=== PATIENT | female | born 1950 | race Hispanic/Latino ===

== ENCOUNTER 2018-03-31 11:12 | Emergency (ER) | payer OTHER ==
[2018-03-31] MEDS ORDERED: IPRATROPIUM BROM 0.5MG/2.5ML ONE (12:35)
[2018-03-31] MEDS ORDERED: ALBUTEROL 2.5 MG/3 ML NEB SOL ONE (12:35)
--- NOTE | 2018-03-31 14:24 | ER ---
Nurse's Notes [facility] Name: Wandy Marks Age: 67 yrs Sex: Female : 1950 Arrival Date: 03/31/2018 Time: 11:15 Bed 12 Private MD: Diagnosis: Bronchitis, not specified as acute or chronic Presentation: 03/31 11:25 Presenting complaint: Patient states: Nasal congestion, cough for 15 days. Seen by PCP aj on Tuesday and DX with seasonal allergies. Patient states, "the medicine isn't working." Patient did not call PCP. Transition of care: patient was not received from another setting of care. Onset of symptoms was March 15, 2018. Initial Sepsis Screen: Does the patient meet any 2 criteria? No. Patient's initial sepsis screen is negative. Does the patient have a suspected source of infection? No. Patient's initial sepsis screen is negative. Care prior to arrival: None. 11:25 Method Of Arrival: Ambulatory aj 11:25 Acuity: PENNY 4 aj Triage Assessment: 11:27 General: Appears in no apparent distress. comfortable, Behavior is calm, cooperative, aj appropriate for age. Pain: Denies pain. EENT: Reports nasal congestion nasal discharge. Neuro: Level of Consciousness is awake, alert, obeys commands, Oriented to person, place, time, situation, Appropriate for age. Respiratory: Reports cough that is Airway is patent Respiratory effort is even, unlabored, Respiratory pattern is regular, symmetrical. Derm: Skin is intact, is healthy with good turgor, Skin is pink, warm \\T\\ dry. normal. Historical: - Allergies: 11:27 PENICILLINS; aj - PMHx: 11:27 Hypertension; Diabetes - NIDDM; aj - PSHx: 11:27 Hysterectomy; aj - Immunization history:: Adult Immunizations up to date. - Social history:: Smoking status: Patient/guardian denies using tobacco. Screenin:40 Fall Risk None identified. iw 13:05 Abuse screen: Denies threats or abuse. Denies injuries from another. Nutritional iw screening: No deficits noted. Tuberculosis screening: No symptoms or risk factors identified. Assessment: 12:40 General: Appears in no apparent distress. comfortable, Behavior is calm, cooperative. iw Neuro: Level of Consciousness is awake, alert, obeys commands. Cardiovascular: Patient's skin is warm and dry. Respiratory: Reports cough that is productive. Vital Signs: 11:27 BP 142 / 92; Pulse 90; Resp 20; Temp 97.6; Pulse Ox 98% on R/A; Weight 79.83 kg; Height aj 5 ft. 4 in. (162.56 cm); 11:27 Body Mass Index 30.21 (79.83 kg, 162.56 cm) aj ED Course: 11:15 Patient arrived in ED. mr 11:27 Triage completed. aj 11:27 Arm band placed on left wrist. Patient placed in waiting room, Patient notified of wait aj time. 12:17 Rose Rivera FNP-C is PHCP. kb 12:17 Jerad Alvarado MD is Attending Physician. kb 12:30 Lona Drake, RN is Primary Nurse. iw 12:40 Patient has correct armband on for positive identification. iw 12:45 Radiology exam delayed due to patient receiving breathing treatment at this time. jr1 patient is not appropriately dressed for the exam at this time. 14:24 Chest Pa And Lat (2 Views) XRAY In Process Unspecified. EDMS 14:50 No provider procedures requiring assistance completed. Patient did not have IV access iw during this emergency room visit. Administered Medications: 12:35 Drug: DuoNeb (3:1) (2.5 mg - 0.5 mg) 3 ml Route: Nebulizer; iw 14:45 Drug: Zithromax 500 mg Route: PO; iw Outcome: 14:23 Discharge ordered by MD. kb 14:54 Discharged to home ambulatory, with family. iw 14:54 Condition: good 14:54 Discharge instructions given to patient, family, Instructed on discharge instructions, follow up and referral plans. medication usage, Demonstrated understanding of instructions, follow-up care, medications, Prescriptions given X 2. 14:55 Patient left the ED. iw Signatures: Dispatcher [employer] EDMS Rose Rivera FNP-C FNP-Kristy Foster, RN Suri Bhagat Carissa Sterling jr1 Lona Drake, RN RN iw
--- NOTE | 2018-03-31 14:24 | EDPHYS ---
Physician Documentation [facility] Name: Wandy Marks Age: 67 yrs Sex: Female : 1950 Arrival Date: 03/31/2018 Time: 11:15 Bed 12 Private MD: ED Physician Jerad Alvarado HPI: 03/31 12:41 This 67 yrs old Female presents to ER via Ambulatory with complaints of Cough, kb Congestion. 12:41 The patient or guardian reports cough, that is intermittent, described as moderate, kb with no sputum. Onset: The symptoms/episode began/occurred 15 day(s) ago. Severity of symptoms: At their worst the symptoms were mild, moderate, in the emergency department the symptoms are unchanged. Modifying factors: The symptoms are alleviated by nothing, the symptoms are aggravated by nothing. Associated signs and symptoms: Pertinent positives: rhinorrhea, Pertinent negatives: chest pain, diarrhea, ear ache, fever, nausea, sore throat, vomiting. The patient has not experienced similar symptoms in the past. The patient has not recently seen a physician. Pt c/o cough and congestion for 15 days. Has been taking flonase, prednisone, and claritin without relief. symptoms progressively getting worse. Historical: - Allergies: 11:27 PENICILLINS; aj - PMHx: 11:27 Hypertension; Diabetes - NIDDM; aj - PSHx: 11:27 Hysterectomy; aj - Immunization history:: Adult Immunizations up to date. - Social history:: Smoking status: Patient/guardian denies using tobacco. ROS: 12:39 Constitutional: Negative for fever, chills, and weight loss, Neck: Negative for injury, kb pain, and swelling, Cardiovascular: Negative for chest pain, palpitations, and edema, Abdomen/GI: Negative for abdominal pain, nausea, vomiting, diarrhea, and constipation, Back: Negative for injury and pain, : Negative for injury, bleeding, discharge, and swelling, MS/Extremity: Negative for injury and deformity, Skin: Negative for injury, rash, and discoloration, Neuro: Negative for headache, weakness, numbness, tingling, and seizure. 12:39 ENT: Positive for rhinorrhea, sinus congestion. 12:39 Respiratory: Positive for cough, Negative for dyspnea on exertion, hemoptysis, orthopnea, pleurisy, shortness of breath, sputum production, wheezing. Exam: 12:39 Constitutional: This is a well developed, well nourished patient who is awake, alert, kb and in no acute distress. Head/Face: Normocephalic, atraumatic. Neck: Trachea midline, no thyromegaly or masses palpated, and no cervical lymphadenopathy. Supple, full range of motion without nuchal rigidity, or vertebral point tenderness. No Meningismus. Chest/axilla: Normal chest wall appearance and motion. Nontender with no deformity. No lesions are appreciated. Cardiovascular: Regular rate and rhythm with a normal S1 and S2. No gallops, murmurs, or rubs. Normal PMI, no JVD. No pulse deficits. Abdomen/GI: Soft, non-tender, with normal bowel sounds. No distension or tympany. No guarding or rebound. No evidence of tenderness throughout. Back: No spinal tenderness. No costovertebral tenderness. Full range of motion. Skin: Warm, dry with normal turgor. Normal color with no rashes, no lesions, and no evidence of cellulitis. MS/ Extremity: Pulses equal, no cyanosis. Neurovascular intact. Full, normal range of motion. Neuro: Awake and alert, GCS 15, oriented to person, place, time, and situation. Cranial nerves II-XII grossly intact. Motor strength 5/5 in all extremities. Sensory grossly intact. Cerebellar exam normal. Normal gait. 12:39 Respiratory: the patient does not display signs of respiratory distress, Respirations: normal, Breath sounds: wheezing: expiratory that is mild. Vital Signs: 11:27 BP 142 / 92; Pulse 90; Resp 20; Temp 97.6; Pulse Ox 98% on R/A; Weight 79.83 kg; Height aj 5 ft. 4 in. (162.56 cm); 11:27 Body Mass Index 30.21 (79.83 kg, 162.56 cm) aj MDM: 12:17 Patient medically screened. kb 12:39 Data reviewed: vital signs, nurses notes. Data interpreted: Pulse oximetry: on room air kb is 98 %. Interpretation: normal. Counseling: I had a detailed discussion with the patient and/or guardian regarding: the historical points, exam findings, and any diagnostic results supporting the discharge/admit diagnosis, radiology results, the need for outpatient follow up, a family practitioner, to return to the emergency department if symptoms worsen or persist or if there are any questions or concerns that arise at home. 03/31 12:28 Order name: Chest Pa And Lat (2 Views) XRAY kb Administered Medications: 12:35 Drug: DuoNeb (3:1) (2.5 mg - 0.5 mg) 3 ml Route: Nebulizer; iw 14:45 Drug: Zithromax 500 mg Route: PO; iw Disposition: 03/31/18 14:23 Discharged to Home. Impression: Bronchitis, not specified as acute or chronic. - Condition is Stable. - Discharge Instructions: Acute Bronchitis, [id number]. - Prescriptions for Zithromax Z- Maurisio 250 mg Oral Tablet - take 1 tablet by ORAL route as directed for 5 days Day 1 - take two (2) tablets one time. Day 2, 3, 4 , 5 take one (1) tablet once daily.; 6 tablet. Albuterol Sulfate 90 mcg/actuation - inhale 1-2 puff by INHALATION route every 4-6 hours; 1 Inhaler. - Medication Reconciliation Form, Thank You Letter, Antibiotic Education, Prescription Opioid Use form. - Follow up: Emergency Department; When: As needed; Reason: Worsening of condition. Follow up: Private Physician; When: 2 - 3 days; Reason: Recheck today's complaints, Continuance of care, Re-evaluation by your physician. Addendum: 04/03/2018 08:47 Co-signature as Attending Physician, Jerad Alvarado MD I agree with the assessment and c mckeon plan of care. Signatures: Dispatcher [employer] Rose Yu, EDUARDA-C WEB SITE DESIGNER-Kristy Foster RN RN aj Anderson, Corey, MD MD cha Williams, Irene RN RN iw Corrections: (The following items were deleted from the chart) 03/31 14:55 14:23 03/31/2018 14:23 Discharged to Home. Impression: Bronchitis, not specified as iw acute or chronic. Condition is Stable. Forms are Medication Reconciliation Form, Thank You Letter, Antibiotic Education, Prescription Opioid Use. Follow up: Emergency Department; When: As needed; Reason: Worsening of condition. Follow up: Private Physician; When: 2 - 3 days; Reason: Recheck today's complaints, Continuance of care, Re-evaluation by your physician. kb
[2018-03-31] MEDS ORDERED: AZITHROMYCIN 250 MG TAB ONE (14:48)
--- NOTE | 2018-03-31 15:49 | RAD REPORT ---
EXAM DESCRIPTION: Jordan Espinosa And Flaquita (2 Views)03/31/2018 2:23 pm CLINICAL HISTORY: Cough COMPARISON: None FINDINGS: The lungs appear clear of acute infiltrate. The heart is normal size. The aorta is tortuo us/ectatic IMPRESSION: No acute abnormalities displayed
== END 2018-03-31 14:55 | disposition home or self-care (01) ==
LOC: ER 11:12
DX: J40 Bronchitis, not specified as acute or chronic (principal); I10 Essential (primary) hypertension; Z88.0 Allergy status to penicillin
CPT/HCPCS: 71046; 94640; 99284

== ENCOUNTER 2019-02-23 06:42 | Inpatient (IN) | payer OTHER ==
[2019-02-23 07:34] LABS: Absolute Lymphocytes (CBC) 1.9 K/uL (0.7-4.9); Absolute Monocytes 1.2 K/uL (0.1-1.3); Absolute Neutrophil 8.5 K/uL (1.8-8.0); Basophils % 0.5 % (0-1.3); Eosinophils % 0.7 % (0-4.4); Hematocrit 38.6 % (36.0-45.0); Lymphocytes % 16.3 % (15.3-44.8); MPV 10.5 fL (7.6-11.3); Monocytes % 10.5 % (3.3-12.3); RBC Red Blood Cell Count 4.22 M/uL (3.86-4.86)
[2019-02-23] MEDS ORDERED: MEPERIDINE HCL 25 MG/0.5 ML ONE (07:41)
[2019-02-23] MEDS ORDERED: ONDANSETRON 4 MG/2 ML VIAL ONE (07:41)
[2019-02-23 07:55] LABS: ALT/SGPT 37 U/L (12-78); AST/SGOT 18 U/L (15-37); Albumin 3.4 g/dL (3.4-5.0); Alkaline Phosphatase 96 U/L (45-117); BUN Blood Urea Nitrogen 15 mg/dL (7-18); Bicarbonate 25 mmol/L (21-32); Bilirubin Direct 0.2 mg/dL (0-0.2); Bilirubin Total 0.5 mg/dL (0.2-1.0); Glucose Level 119 mg/dL (74-106); Lipase 1368 U/L (73-393); Potassium 3.6 mmol/L (3.5-5.1); Protein, Total 7.4 g/dL (6.4-8.2); Sodium Level 140 mmol/L (136-145)
--- NOTE | 2019-02-23 09:12 | RAD REPORT ---
EXAM DESCRIPTION: CT - Abdomen Pelvis W Contrast - 02/23/2019 8:42 am CLINICAL HISTORY: Abdominal pain with nausea. COMPARISON: none. TECHNIQUE: Computed axial tomography of the abdomen pelvis was obtained. 100 cc Isovue-300 was admin istered intravenously. Oral contrast was not requested which limits evaluation of bowel. All CT scans are performed using dose optimization technique as appropriate and may include automated exposure control or mA/KV adjustment according to patient size. FINDINGS: Mild fatty liver. Portion of wall of the gallbladder is calcified. 1Spleen, pancreas, adrenal and kidneys appear unremarkable. There is no evidence of diverticulitis. The appendix is normal a hysterectomy has been performed Duodenal diverticulum. Tiny umbilical hernia Mild stranding is present adjacent to the third portion of the duodenum. IMPRESSION: Mild stranding adjacent to the third portion of the duodenum may indicate inflammation o r infection.
--- NOTE | 2019-02-23 10:00 | RAD REPORT ---
EXAM DESCRIPTION: US - Abdomen Exam Limited - 02/23/2019 7:41 am CLINICAL HISTORY: Abdominal pain. COMPARISON: December 2018 FINDINGS: Multiple small gallstones. Gallbladder wall is not thickened. The biliary tree is normal caliber. IMPRESSION: Cholelithiasis
--- NOTE | 2019-02-23 10:09 | EDPHYS ---
Physician Documentation [facility] Name: Wandy Marks Age: 68 yrs Sex: Female : 1950 Arrival Date: 02/23/2019 Time: 06:43 Bed 7 Private MD: Ema Escoto C ED Physician Carolyn Wolfe HPI: 02/23 07:24 This 68 yrs old Female presents to ER via Wheelchair with complaints of jr8 Epigastric Pain, Nausea/Vomiting, Back Pain. 07:24 The patient presents with abdominal pain in the epigastric area, in the upper abdomen. jr8 Onset: The symptoms/episode began/occurred gradually, 1 week(s) ago. The symptoms radiate to back. Associated signs and symptoms: Pertinent positives: nausea, vomiting, and diarrhea. The symptoms are described as stabbing. Modifying factors: The symptoms are alleviated by nothing, the symptoms are aggravated by food. Severity of pain: At its worst the pain was moderate in the emergency department the pain is unchanged. The patient has not experienced similar symptoms in the past. The patient has been recently seen by a physician:. Saw physician in [place] and gave her combination shot of Toradol and Scopolamine. Helped temporarily but now worse . Historical: - Allergies: 07:01 PENICILLINS; jd3 - Home Meds: 07:01 carvedilol 12.5 mg oral tab [Active]; esomeprazole magnesium 40 mg oral cpDR [Active]; jd3 Jentadueto 2.5-500 mg oral tab [Active]; losartan 100 mg oral tab [Active]; - PMHx: 07:01 Hypertension; Diabetes - NIDDM; High Cholesterol; jd3 - PSHx: 07:01 Hysterectomy; Tonsillectomy; jd3 - Immunization history:: Adult Immunizations up to date. - Social history:: Smoking status: Patient/guardian denies using tobacco. - Ebola Screening: : Patient negative for fever greater than or equal to 101.5 degrees Fahrenheit, and additional compatible Ebola Virus Disease symptoms. ROS: 07:24 Eyes: Negative for injury, pain, redness, and discharge, ENT: Negative for injury, jr8 pain, and discharge, Neck: Negative for injury, pain, and swelling, Cardiovascular: Negative for chest pain, palpitations, and edema, Respiratory: Negative for shortness of breath, cough, wheezing, and pleuritic chest pain, Back: Negative for injury and pain, MS/Extremity: Negative for injury and deformity, Skin: Negative for injury, rash, and discoloration, Neuro: Negative for headache, weakness, numbness, tingling, and seizure. 07:24 Abdomen/GI: Positive for abdominal pain, nausea, vomiting, and diarrhea, Negative for abdominal cramps, abdominal distension, anorexia, dysphagia, hematemesis, black/tarry stool, rectal pain, rectal bleeding, bowel incontinence, flatulence. Exam: 07:24 Eyes: Pupils equal round and reactive to light, extra-ocular motions intact. Lids and jr8 lashes normal. Conjunctiva and sclera are non-icteric and not injected. Cornea within normal limits. Periorbital areas with no swelling, redness, or edema. ENT: Nares patent. No nasal discharge, no septal abnormalities noted. Tympanic membranes are normal and external auditory canals are clear. Oropharynx with no redness, swelling, or masses, exudates, or evidence of obstruction, uvula midline. Mucous membranes moist. Neck: Trachea midline, no thyromegaly or masses palpated, and no cervical lymphadenopathy. Supple, full range of motion without nuchal rigidity, or vertebral point tenderness. No Meningismus. Cardiovascular: Regular rate and rhythm with a normal S1 and S2. No gallops, murmurs, or rubs. Normal PMI, no JVD. No pulse deficits. Respiratory: Lungs have equal breath sounds bilaterally, clear to auscultation and percussion. No rales, rhonchi or wheezes noted. No increased work of breathing, no retractions or nasal flaring. Back: No spinal tenderness. No costovertebral tenderness. Full range of motion. Skin: Warm, dry with normal turgor. Normal color with no rashes, no lesions, and no evidence of cellulitis. MS/ Extremity: Pulses equal, no cyanosis. Neurovascular intact. Full, normal range of motion. Neuro: Awake and alert, GCS 15, oriented to person, place, time, and situation. Cranial nerves II-XII grossly intact. Motor strength 5/5 in all extremities. Sensory grossly intact. Cerebellar exam normal. Normal gait. 07:24 Abdomen/GI: Inspection: abdomen appears normal, Bowel sounds: active, all quadrants, Palpation: soft, in all quadrants, moderate abdominal tenderness, in the epigastric area and right upper quadrant, mass, is not appreciated, rebound tenderness, is not appreciated, voluntary guarding, is not appreciated, involuntary guarding, is not appreciated, no appreciated organomegaly, Indicators: McBurney's point is not tender, Thomas's sign is positive, Rovsing's sign is negative, Liver: tenderness, is not appreciated. Vital Signs: 07:01 BP 148 / 70; Pulse 75; Resp 18 S; Temp 99.0(O); Pulse Ox 97% on R/A; Weight 76.66 kg jd3 (R); Height 5 ft. 2 in. (157.48 cm) (R); Pain 7/10; 07:37 BP 146 / 79; Pulse 64; Resp 16 S; Pulse Ox 92% on R/A; jl7 09:09 BP 127 / 59; Pulse 60; Resp 19 S; Pulse Ox 95% on R/A; jl7 10:12 BP 144 / 73; Pulse 62; Resp 16 S; Pulse Ox 99% on R/A; jl7 11:00 BP 139 / 69; Pulse 60; Resp 16 S; Pulse Ox 98% on R/A; jl7 12:00 BP 120 / 76; Pulse 61; Resp 14 S; Pulse Ox 98% on R/A; jl7 14:00 BP 127 / 69; Pulse 61; Resp 16 S; Pulse Ox 99% on R/A; jl7 07:01 Body Mass Index 30.91 (76.66 kg, 157.48 cm) jd3 MDM: 06:45 Patient medically screened. jr8 10:07 Data reviewed: vital signs, nurses notes, lab test result(s), radiologic studies, CT jr8 scan, ultrasound. Data interpreted: Pulse oximetry: on room air is 95 %. Interpretation: normal. Counseling: I had a detailed discussion with the patient and/or guardian regarding: the historical points, exam findings, and any diagnostic results supporting the discharge/admit diagnosis, lab results, radiology results, the need for further work-up and treatment in the hospital. Physician consultation: Zulema Null MD was called at 10:08, was contacted at 10:08, regarding admission, to the medical/surgical unit. consult, patient's condition, and will see patient. 02/23 07:15 Order name: Basic Metabolic Panel; Complete Time: 08:12 02/23 07:15 Order name: CBC with Diff; Complete Time: 07:53 02/23 07:15 Order name: Creatinine for Radiology; Complete Time: 07:53 02/23 07:15 Order name: Hepatic Function; Complete Time: 08:12 02/23 07:15 Order name: Lipase; Complete Time: 08:12 02/23 07:21 Order name: Urine Dipstick--Ancillary (enter results); Complete Time: 11:34 02/23 07:15 Order name: IV Saline Lock; Complete Time: 07:27 02/23 07:15 Order name: Labs collected and sent; Complete Time: 07:28 02/23 07:15 Order name: US Abdomen Limited; Complete Time: 10:02 02/23 08:13 Order name: CT Abd/Pelvis - W/Contrast; Complete Time: 09:21 [facility] 02/23 07:15 Order name: Urine Dipstick-Ancillary (obtain specimen); Complete Time: 07:27 Administered Medications: 07:31 Drug: Zofran 4 mg Route: IVP; Site: left antecubital; jl7 08:15 Follow up: Response: No adverse reaction jl7 07:33 Drug: Demerol 25 mg Route: IVP; Site: left antecubital; jl7 08:15 Follow up: Response: No adverse reaction; Pain is decreased jl7 10:05 Drug: Rocephin 1 grams Route: IV; Rate: calculated rate; Site: left antecubital; jl7 10:07 Follow up: Response: No adverse reaction; IV Status: Completed infusion jl7 10:07 Drug: Flagyl 500 mg Volume: 100 ml; Route: IVPB; Rate: 200 ml/hr; Infused Over: 30 jl7 mins; Site: left antecubital; 10:37 Follow up: Response: No adverse reaction jl7 10:37 Follow up: IV Status: Completed infusion jl7 Disposition: 02/23/19 10:08 Hospitalization ordered by Zulema Null for Inpatient Admission. Preliminary diagnosis are Duodenitis, Cholelithiasis. - Bed requested for Telemetry/MedSurg (Inpatient). - Status is Inpatient Admission. jl7 - Condition is Stable. - Problem is new. - Symptoms have improved. UTI on Admission? No Addendum: 02/27/2019 11:46 Co-signature as Attending Physician, Carolyn Wolfe MD. m a2 Signatures: Dispatcher [employer] EDMS Tomás Mccallum PA PA jr8 Zach Dodd, MODE RN jl7 Joselyn Christianson, RN RN df Ben Heller RN RN jd3 Carolyn Wolfe MD MD ma2 Corrections: (The following items were deleted from the chart) 02/23 13:51 10:08 Hospitalization Ordered by Zulema Null MD for Inpatient Admission. Preliminary df diagnosis is Duodenitis; Cholelithiasis. Bed requested for Telemetry/MedSurg (Inpatient). Status is Inpatient Admission. Condition is Stable. Problem is new. Symptoms have improved. UTI on Admission? No. jr8 14:29 13:51 02/23/2019 10:08 Hospitalization Ordered by Zulema Null MD for Inpatient jl7 Admission. Preliminary diagnosis is Duodenitis; Cholelithiasis. Bed requested for Telemetry/MedSurg (Inpatient). Status is Inpatient Admission. Condition is Stable. Problem is new. Symptoms have improved. UTI on Admission? No. df
--- NOTE | 2019-02-23 10:09 | ER ---
Nurse's Notes [facility] Name: Wandy Marks Age: 68 yrs Sex: Female : 1950 Arrival Date: 02/23/2019 Time: 06:43 Bed 7 Private MD: Ema Escoto C Diagnosis: Duodenitis;Cholelithiasis Presentation: 02/23 06:55 Presenting complaint: Patient states: "I am having abdominal pain and feeling bloated, jd3 and throwing up, and diarrhea. my pee has also been very dark.". Transition of care: patient was not received from another setting of care. Onset of symptoms was February 23, 2019. Risk Assessment: Do you want to hurt yourself or someone else? Patient reports no desire to harm self or others. Initial Sepsis Screen: Does the patient meet any 2 criteria? No. Patient's initial sepsis screen is negative. Does the patient have a suspected source of infection? No. Patient's initial sepsis screen is negative. Care prior to arrival: None. 06:55 Method Of Arrival: Wheelchair jd3 06:55 Acuity: PENNY 3 jd3 Historical: - Allergies: 07:01 PENICILLINS; jd3 - Home Meds: 07:01 carvedilol 12.5 mg oral tab [Active]; esomeprazole magnesium 40 mg oral cpDR [Active]; jd3 Jentadueto 2.5-500 mg oral tab [Active]; losartan 100 mg oral tab [Active]; - PMHx: 07:01 Hypertension; Diabetes - NIDDM; High Cholesterol; jd3 - PSHx: 07:01 Hysterectomy; Tonsillectomy; jd3 - Immunization history:: Adult Immunizations up to date. - Social history:: Smoking status: Patient/guardian denies using tobacco. - Ebola Screening: : Patient negative for fever greater than or equal to 101.5 degrees Fahrenheit, and additional compatible Ebola Virus Disease symptoms. Screenin:37 Abuse screen: Denies threats or abuse. Denies injuries from another. Nutritional jl7 screening: No deficits noted. Tuberculosis screening: No symptoms or risk factors identified. Fall Risk IV access (20 points). Total Ashton Fall Scale indicates No Risk (0-24 pts). Assessment: 07:15 General: Appears in no apparent distress. uncomfortable, Behavior is calm, cooperative, jl7 appropriate for age. Pain: Complains of pain in epigastric area Pain radiates to right upper quadrant Pain currently is 7 out of 10 on a pain scale. Is intermittent. Neuro: Level of Consciousness is awake, alert, obeys commands, Oriented to person, place, time, situation. Cardiovascular: Patient's skin is warm and dry. Respiratory: Airway is patent Respiratory effort is even, unlabored, Respiratory pattern is regular, symmetrical. GI: Abdomen is round non-distended, Bowel sounds present X 4 quads. Abd is soft X 4 quads Abdomen is tender to palpation in right upper quadrant Reports nausea, Patient currently denies constipation, diarrhea, vomiting. : Urine is Clear, light yellow urine noted Reports "Dark urine.". EENT: No signs and/or symptoms were reported regarding the EENT system. Derm: Skin is pink, warm \\T\\ dry. Musculoskeletal: No signs and/or symptoms reported regarding the musculoskeletal system. 08:15 Reassessment: Patient appears in no apparent distress at this time. Patient and/or jl7 family updated on plan of care and expected duration. Pain level reassessed. Patient is alert, oriented x 3, equal unlabored respirations, skin warm/dry/pink. Pain decreased to a 5/10 at this time. 09:11 Reassessment: Patient appears in no apparent distress at this time. No changes from jl7 previously documented assessment. Patient and/or family updated on plan of care and expected duration. Pain level reassessed. Patient is alert, oriented x 3, equal unlabored respirations, skin warm/dry/pink. 10:00 Reassessment: Patient appears in no apparent distress at this time. Patient and/or jl7 family updated on plan of care and expected duration. Pain level reassessed. Patient is alert, oriented x 3, equal unlabored respirations, skin warm/dry/pink. 11:00 Reassessment: Patient appears in no apparent distress at this time. No changes from jl7 previously documented assessment. Patient and/or family updated on plan of care and expected duration. Pain level reassessed. Patient is alert, oriented x 3, equal unlabored respirations, skin warm/dry/pink. 12:00 Reassessment: Patient appears in no apparent distress at this time. Patient and/or jl7 family updated on plan of care and expected duration. Pain level reassessed. Patient is alert, oriented x 3, equal unlabored respirations, skin warm/dry/pink. 13:00 Reassessment: Patient appears in no apparent distress at this time. Patient and/or jl7 family updated on plan of care and expected duration. Pain level reassessed. Patient is alert, oriented x 3, equal unlabored respirations, skin warm/dry/pink. 14:00 Reassessment: Patient appears in no apparent distress at this time. No changes from jl7 previously documented assessment. Patient and/or family updated on plan of care and expected duration. Pain level reassessed. Patient is alert, oriented x 3, equal unlabored respirations, skin warm/dry/pink. Vital Signs: 07:01 BP 148 / 70; Pulse 75; Resp 18 S; Temp 99.0(O); Pulse Ox 97% on R/A; Weight 76.66 kg jd3 (R); Height 5 ft. 2 in. (157.48 cm) (R); Pain 7/10; 07:37 BP 146 / 79; Pulse 64; Resp 16 S; Pulse Ox 92% on R/A; jl7 09:09 BP 127 / 59; Pulse 60; Resp 19 S; Pulse Ox 95% on R/A; jl7 10:12 BP 144 / 73; Pulse 62; Resp 16 S; Pulse Ox 99% on R/A; jl7 11:00 BP 139 / 69; Pulse 60; Resp 16 S; Pulse Ox 98% on R/A; jl7 12:00 BP 120 / 76; Pulse 61; Resp 14 S; Pulse Ox 98% on R/A; jl7 14:00 BP 127 / 69; Pulse 61; Resp 16 S; Pulse Ox 99% on R/A; jl7 07:01 Body Mass Index 30.91 (76.66 kg, 157.48 cm) jd3 ED Course: 06:43 Patient arrived in ED. am2 06:44 Ema Escoto FNP is Private Physician. am2 06:45 [facility] jr8 06:45 Carolyn Wolfe MD is Attending Physician. jr8 06:58 Triage completed. jd3 07:03 Arm band placed on. jd3 07:06 Zach Dodd RN is Primary Nurse. jl7 07:37 Patient has correct armband on for positive identification. Placed in gown. Bed in low jl7 position. Call light in reach. Side rails up X 1. monitor and storage bin tender on. Pulse ox on. NIBP on. 07:37 Initial lab(s) drawn, by me, sent to lab. Urine collected: clean catch specimen, clear. jl7 Inserted saline lock: 22 gauge in left antecubital area, using aseptic technique. Blood collected. 07:42 US Abdomen Limited In Process Unspecified. EDMS 08:35 CT completed. Patient tolerated procedure well. Patient moved to CT via stretcher. Patient moved back from CT. 08:36 CT Abd/Pelvis - W/Contrast In Process Unspecified. EDMS 10:08 Zulema Null MD is Hospitalizing Provider. jr8 14:27 No provider procedures requiring assistance completed. Patient admitted, IV remains in jl7 place. intact, No redness/swelling at site. Administered Medications: 07:31 Drug: Zofran 4 mg Route: IVP; Site: left antecubital; jl7 08:15 Follow up: Response: No adverse reaction jl7 07:33 Drug: Demerol 25 mg Route: IVP; Site: left antecubital; jl7 08:15 Follow up: Response: No adverse reaction; Pain is decreased jl7 10:05 Drug: Rocephin 1 grams Route: IV; Rate: calculated rate; Site: left antecubital; jl7 10:07 Follow up: Response: No adverse reaction; IV Status: Completed infusion jl7 10:07 Drug: Flagyl 500 mg Volume: 100 ml; Route: IVPB; Rate: 200 ml/hr; Infused Over: 30 jl7 mins; Site: left antecubital; 10:37 Follow up: Response: No adverse reaction jl7 10:37 Follow up: IV Status: Completed infusion jl7 Outcome: 10:08 Decision to Hospitalize by Provider. jr8 14:27 Admitted to Tele accompanied by tech, family with patient, via stretcher, room 430, jl7 with chart, Report called to MODE Laguerre 14:27 Condition: stable 14:27 Discharge instructions given to patient, family, Instructed on the need for admit, Demonstrated understanding of instructions. 14:29 Patient left the ED. jl7 Signatures: Dispatcher [employer] Kiarra Hickman Josh, PA PA jr8 Zach oDdd RN RN jl7 Kristy Alberto Jonathon, RN RN jd3 Corrections: (The following items were deleted from the chart) 07:39 07:37 Warm blanket given. yumiko jl7
[2019-02-23] MEDS ORDERED: METRONIDAZOLE 500mg IVPB 500 MG/100 ML BAG IV ONE (10:14)
[2019-02-23] MEDS ORDERED: CEFTRIAXONE/SWI 1gm 1 GM/10 ML SYR ONE (10:14)
[2019-02-23 11:18] LABS: Urine Blood TRACE (NEG); Urine Glucose NEGATIVE (NEG); Urine Protein NEGATIVE (NEG); Urine Specific Gravity 1.015 (1.005-1.030)
[2019-02-23] MEDS ORDERED: ONDANSETRON 4 MG/2 ML VIAL IV PRN (14:47)
[2019-02-23] MEDS ORDERED: ACETAMINOPHEN 650MG/RECT SUPP PR PRN (14:47)
[2019-02-23] MEDS ORDERED: CARVEDILOL 12.5 MG TAB PO PRN (15:17)
[2019-02-23 15:40] VITALS: BMI 30.9
--- NOTE | 2019-02-23 16:07 | RAD REPORT ---
EXAM DESCRIPTION: MRI - Cholangiogram - 02/23/2019 3:18 pm CLINICAL HISTORY: Abdominal pain, acute cholecystitis COMPARISON: CT abdomen February 23, ultrasound February 23 TECHNIQUE: Axial and coronal heavily T2 weighted sequences were obtained. Coronal T2 HASTE fat satur ation static and coronal multiplane reconstruction imaging generated and reviewed. Horizontal and massimo tical axis rotational views obtained using maximum intensity projection (MIP) protocol. FINDINGS: Exam has motion degradation limitations. Extrahepatic biliary tree is not dilated. No duct stone, stricture or mass identifiable. Distended gallbladder is present. Gallstones have been previo usly diagnosed. No pancreatic duct dilatation. IMPRESSION: No duct stone or biliary tree abnormality seen.
[2019-02-23] MEDS ORDERED: GLUCAGON 1 MG/VIAL IM PRN (16:36)
[2019-02-23] MEDS ORDERED: D50W 25 GM/50 ML SYRINGE IV PRN (16:36)
[2019-02-23] MEDS: D5.45NS W/KCL 20MEQ 1,000 ML IV SCH ×2 (16:41→23:51)
[2019-02-23] MEDS: METRONIDAZOLE 500mg IVPB 500 MG/100 ML BAG IV SCH (16:46)
[2019-02-23] MEDS: INSULIN -REGULAR HUMAN 50 UNIT/0.5 ML ML SQ SCH (21:00)
[2019-02-23] MEDS: CIPROFLOXACIN 400mg IV 400 MG/200 ML BAG IV SCH (21:04)
[2019-02-23] MEDS: MORPHINE 2 MG/ML SYR IV PRN (21:09)
[2019-02-24] MEDS: METRONIDAZOLE 500mg IVPB 500 MG/100 ML BAG IV SCH ×3 (00:04→16:22)
--- NOTE | 2019-02-24 01:06 | CON ---
Date of Consultation: 02/23/2019 Reason For Service: Duodenitis and pancreatitis and gallstones. History Of Present Illness: This is the case of a 68-year-old patient with multiple medical problems including hypertension, diabetes, high cholesterol, comes with abdominal pain, bloated. The patient was found out to have pancreatitis, duodenitis and gallstones and admitted to the hospital. Surgica l consult was obtained. She denies any dysuria, hematuria, hematochezia, melena, although she states that her urine to be a little bit darker than usual. She denies any family member sick at home. Rosa bledsoe denies any recent traveling out of the country. She says that she had an ultrasound also a long ti me ago that showed gallstones. She was recommended to go to our office, but she has not had a chance to do so. Review of Systems: Ten points otherwise unremarkable. Allergies: PENICILLIN. Medications: Omeprazole, losartan. Medical Problems: Hypertension, diabetes, high cholesterol. Surgeries: Hysterectomy, tonsillectomy. Social History: She does not smoke. She does not drink alcohol. Physical Examination: General: The patient is awake and alert. No distress. HEENT: Pupils are equal and reactive, anicteric. Neck: Supple. Chest: Clear. Abdomen: Soft and depressible. No guarding, rebound, or peritoneal signs. Mild epigastric tenderne ss. Extremities: Good capillary refill. Laboratory Data: Blood work shows WBC count of 11.9, hemoglobin of 12.6. Calcium 8.4. Lipase 1368. Total bilirubin normal at 0.5 and alkaline phosphate 96. UA; nitrite negative. Abdominal ultrasou nd interpreted by Dr. Gale as cholelithiasis, no gallbladder wall thickening. Abdominal CT inter preted by Dr. Gale as mild stranding adjacent to the third portion of the duodenum, may indicate inflammation or infection. The patient also has a tiny umbilical hernia, duodenal diverticulum. MRC P was done and interpreted by Dr. Sidhu shows no duct stone or biliary tree abnormalities seen. Assessment: A 68-year-old patient with a few problems, duodenum, pancreatitis, and gallbladder stone . The test did not show any blockage of the pancreatic duct or common bile duct by gallstones. Etio logy of pancreatitis then is a known illness. She passed the stone and it is already in the GI tract , so we cannot see it. From the surgical standpoint, we cannot detect pancreatic pancreas cools down. She is already on bowel rest at this moment. We will repeat lipase tomorrow morning an d see how she is doing. For the duodenitis in that area, the etiology of that is unknown. We will r ecommend the patient to have a GI evaluation eventually to rule out any peptic ulcer disease. For th e gallbladder itself when the pancreatitis get improved, then we will decide gallbladder w ill be done electively or not once the inflammation of that area is down as it was recommended to her previously. We will follow the patient with you and give more recommendations as the case develops. KARMNE/LEAH Voice ID: [id number] Report ID: [id number]
--- NOTE | 2019-02-24 03:49 | HP ---
Date of Admission: 02/23/2019 Pulley Worker: Dr. Valerio with General Surgery. Primary Care Provider: Dr. Escoto. Chief Complaint: Abdominal pain. Code Status: Full. History Of Present Illness: The patient is a 68-year-old female with past medical history of hyperte nsion, diabetes, hyperlipidemia, who was in her usual state of health until several days prior to adm ission when the patient had sudden onset of abdominal pain after eating some food including beans and lentils. The patient states that overall her pain is in the center, however, does radiate to the [facility] upper quadrant. The patient also reports some nausea, vomiting, and intermittent fever. The pat ient's symptoms are constant, moderate, and progressively worsening. The patient did not take any me dications to help alleviate her pain. The pain is worsened with fried fatty foods. No alleviating f actors. The patient came into the ER for further evaluation. Upon arrival, her vital signs were sta ble. She was afebrile. Her workup revealed a white count of 11.9. Lipase was significantly elevate d at 1368. Her liver enzymes and total bilirubin were normal. Imaging studies showed cholelithiasis and no ductal stones, no gallbladder wall thickening. She did have some stranding along with duoden um with possible duodenitis. The patient was then referred for admission. When seen in the ER, she was awake, alert, oriented x3, elderly female, ill appearing. Past Medical History: Hypertension, hyperlipidemia, diabetes mellitus type 2, non-insulin requiring. Surgical History: The patient had partial hysterectomy several decades ago. Allergies: TO PENICILLIN. Medications: List reviewed. Social History: The patient denies any tobacco use. The patient does drink on occasion. Last drink was on her birthday. Denies any illicit drug use. The patient is independent in her activities of daily living, has good social support. Family History: The patient's father had diabetes and hypertension. Review of Systems: An 11-point system reviewed, negative except as per HPI. Physical Examination: Vital Signs: Temperature 99, heart rate 75, blood pressure 148/70, respirations 18, O2 97% on room a ir. General: Awake, alert, oriented x3, ill-appearing female, in some mild distress. Obese, BMI 30. 9. HEENT: Normocephalic, atraumatic. PERRLA. EOMI. Moist mucous membranes. Oropharynx is clear. Co njunctivae are anicteric. Neck: Supple. No JVD. Trachea midline. CV: S1, S2. Regular rate and rhythm. Peripheral pulses present. No murmurs. Respiratory: Moving air well bilaterally. No wheezing or stridor. No use of accessory muscles. Gastrointestinal: Abdomen is soft, nontender, nondistended. Positive bowel sounds. No guarding or rigidity. Mild tenderness to palpation. Bowel sounds positive. Nondistended. Extremities: No clubbing, cyanosis, or edema. No calf tenderness. Neuro: Cranial nerves 2-12 intact grossly. No focal neurological deficit. Speech is normal. Muscl e strength is 5/5 bilateral in upper and lower extremities. Sensation intact to light touch. Skin: No rashes. Normal skin turgor. Psych: Mood is okay. Affect is full. Insight and judgment are good. Laboratory Data: Sodium 140, potassium 3.6, chloride 109, CO2 25, BUN 15, creatinine 0.64, glucose 1 19, calcium 8.4. Total bilirubin 0.5, AST 18, ALT 37, alkaline phosphatase 96, albumin 3.4, lipase 1 368. WBC 11.9, H and H 12.6 and 38.6, platelets 252, neutrophils 72%. UA is negative. Imaging Studies: MRCP shows no duct stone or biliary tree abnormality. CT of the abdomen and pelvis with contrast shows mild stranding adjacent to the third portion of the duodenum, may indicate infla mmation or infection. Abdominal ultrasound shows cholelithiasis. Gallbladder wall is not thickened. Assessment And Plan: A 68-year-old female with: 1.Acute symptomatic cholelithiasis without obstruction. We will continue with IV antibiotics. Keep n.p.o. Start her on IV fluids. The patient has been seen by Dr. Valerio. The patient will likely require cholecystectomy. 2.Duodenitis secondary to above. We will continue with IV antibiotics. 3.Elevated lipase level. CT scan does not show any significant pancreatitis. We will continue to m onitor. MRCP is negative for any ductal stones. 4.Non-intractable nausea, vomiting, secondary to above. We will continue with antiemetics. 5.Essential hypertension, stable. We will add p.r.n. medications as needed for elevated blood press ure. 6.Diabetes mellitus, type 2, [id number] with hyperglycemia. We will start her on sliding scale insulin and monitor blood glucose levels. 7.Hyperlipidemia, on statin. 8.Obesity, BMI 30.9. 9.GI and DVT prophylaxis with PPI and SCDs. No chemical anticoagulation due to possible surgical in tervention. Admit the patient to Med-Surg, place as inpatient. Length of stay, greater than 2 midnights. ERNESTO Voice ID: [id number]
[2019-02-24 05:10] LABS: Absolute Lymphocytes (CBC) 1.4 K/uL (0.7-4.9); Absolute Monocytes 1.2 K/uL (0.1-1.3); Absolute Neutrophil 8.1 K/uL (1.8-8.0); Basophils % 0.2 % (0-1.3); Eosinophils % 0.7 % (0-4.4); Hematocrit 36.6 % (36.0-45.0); Lymphocytes % 13.3 % (15.3-44.8); MPV 10.5 fL (7.6-11.3); Monocytes % 10.8 % (3.3-12.3); RBC Red Blood Cell Count 3.88 M/uL (3.86-4.86)
[2019-02-24 05:37] LABS: Bilirubin Total 0.6 mg/dL (0.2-1.0); Potassium 3.9 mmol/L (3.5-5.1); Protein, Total 6.7 g/dL (6.4-8.2)
[2019-02-24] MEDS ORDERED: POTASSIUM CL SA 10 MEQ TAB PO ONE (05:46)
[2019-02-24] MEDS: INSULIN -REGULAR HUMAN 50 UNIT/0.5 ML ML SQ SCH ×4 (07:30→21:00)
[2019-02-24] MEDS ORDERED: HOME MED 1 EA UNK (Losartan Potassium [Losartan Potassium] 100 MG) PO SCH (09:00)
[2019-02-24] MEDS ORDERED: HOME MED 1 EA UNK (Esomeprazole Magnesium [Esomeprazole Magnesium] 40 MG) PO SCH (09:00)
[2019-02-24] MEDS: PANTOPRAZOLE 40MG TABLET PO SCH (09:28)
[2019-02-24] MEDS: CIPROFLOXACIN 400mg IV 400 MG/200 ML BAG IV SCH ×2 (09:29→21:15)
[2019-02-24] MEDS: LOSARTAN POTASSIUM 50 MG TABLET PO SCH (09:29)
[2019-02-24] MEDS: MORPHINE 2 MG/ML SYR IV PRN ×2 (09:39→21:31)
[2019-02-24] MEDS: D5.45NS W/KCL 20MEQ 1,000 ML IV SCH ×2 (10:47→23:44)
[2019-02-24] MEDS ORDERED: ENOXAPARIN 40 MG/0.4 ML SQ SCH (17:00)
--- NOTE | 2019-02-24 18:37 | PN ---
Date of Progress Note: 02/24/2019 Subjective: The patient is seen and examined. Chart reviewed and case discussed with RN and Dr. Kristel wadsworth. The patient states she has minimal amount of pain in the epigastric region, however, no nause a or vomiting. Medications: List reviewed. Physical Examination: Vital Signs: Temperature 99.7, heart rate 68, blood pressure 110/48, respirations 18, O2 98% on room air. General: Awake, alert, oriented x3. Some mild distress, ill-appearing female, obese, BMI 30. CV: S1, S2. Regular rate and rhythm. Peripheral pulses present. Respiratory: Moving air well bilaterally. No wheezing or stridor. Gastrointestinal: Abdomen is soft. Minimal tenderness to palpation at the epigastric region. No re bound or guarding. Bowel sounds are positive. No distention. Extremities: No clubbing, cyanosis, or edema. Neurologic: Nonfocal. Laboratory Data: Sodium 139, potassium 3.9, chloride 106, CO2 27, BUN 9, creatinine 0.67, glucose 16 1, calcium 8.2, albumin 3, lipase 555. WBC 10.8, H and H 11.9/36.6, platelets 250, neutrophils 75%. Assessment: A 68-year-old female with: 1.Acute symptomatic cholelithiasis without obstruction. We will start on clear liquids. The patien t's pain is improved. No further nausea or vomiting. Continue IV antibiotics. Appreciate Dr. Tammy oneil's input. He does not recommend cholecystectomy at this time due to inflammation of the duodenum and elevated lipase levels. 2.Duodenitis secondary to above. Continue with IV antibiotics. Recommend outpatient GI workup incl uding scope. 3.Elevated lipase levels, clinically behaving as pancreatitis, but no changes on CT scan. We will c ontinue to monitor. MRCP is negative. May have passed a stone recently. Total bilirubin is also no rmal. We will continue to monitor. Lipase level is trending down. 4.Non-intractable nausea and vomiting secondary to above, improving. Continue antiemetics. 5.Essential hypertension, stable. 6.Diabetes mellitus type 2, [id number] with hyperglycemia. We will continue sliding scal e insulin and monitor Accu-Cheks. 7.Hyperlipidemia. Continue statin. 8.Obesity, BMI of 30.9. 9.Gastrointestinal and deep venous thrombosis prophylaxis with PPI and SCDs. We will add Lovenox. There was no surgical intervention at this time. Plan: Clear liquid diet. If the patient is able to tolerate clear liquids, we will advance and like ly discharge in the next 24-48 hours depending on clinical response. /LEAH Voice ID: [id number] Report ID: [id number]
--- NOTE | 2019-02-24 20:43 | PN ---
Date of Progress Note: 02/24/2019 Diagnoses: Pancreatitis, duodenitis, gallstones. History Of Present Illness: This is a case of a 68-year-old patient with above diagnosis, comes to [facility] with epigastric pain. The patient feels better right now. Review of Systems: Ten points otherwise unremarkable. Physical Examination: General: The patient is awake and alert. No distress. HEENT: Pupils anicteric. Abdomen: Soft and depressible. No guarding or rebound. No peritoneal signs. No Thomas sign. Laboratory Data: Lipase today came down from 1000 to 555. MRCP negative for any stones in the commo n bile duct. Assessment: A 68-year-old patient with pancreatitis and duodenitis. She feels a lot better. We keisha ht give her some clear liquid diet and see how is her progress since we see no blockage in the common bile duct. She also should be worked up for a medical reason for pancreatitis since we have no spec ific connection between the stones in the gallbladder and the pancreas other than one that may just p ass and that will be since the common bile duct is clear at this time. Still in the futur e she should have the recommendations from her primary doctor to have the gallbladder sofy shelly once the pancreatitis get improved. KARMEN/LEAH Voice ID: [id number] Report ID: [id number]
[2019-02-25 06:18] LABS: Absolute Lymphocytes (CBC) 1.7 K/uL (0.7-4.9); Absolute Neutrophil 6.9 K/uL (1.8-8.0); Basophils % 0.4 % (0-1.3); Eosinophils % 1.6 % (0-4.4); Hematocrit 37.7 % (36.0-45.0); Lymphocytes % 17.2 % (15.3-44.8); MPV 10.3 fL (7.6-11.3); Monocytes % 10.4 % (3.3-12.3); RBC Red Blood Cell Count 4.08 M/uL (3.86-4.86)
[2019-02-25 06:35] LABS: ALT/SGPT 24 U/L (12-78); AST/SGOT 13 U/L (15-37); Alkaline Phosphatase 101 U/L (45-117); BUN Blood Urea Nitrogen 6 mg/dL (7-18); Bicarbonate 24 mmol/L (21-32); Bilirubin Total 0.5 mg/dL (0.2-1.0); Glucose Level 165 mg/dL (74-106); Potassium 4.2 mmol/L (3.5-5.1); Sodium Level 140 mmol/L (136-145)
[2019-02-25 07:15] LABS: Magnesium 2.1 mg/dL (1.8-2.4)
[2019-02-25] MEDS: INSULIN -REGULAR HUMAN 50 UNIT/0.5 ML ML SQ SCH ×2 (07:30→11:30)
[2019-02-25] MEDS: LOSARTAN POTASSIUM 50 MG TABLET PO SCH (09:06)
[2019-02-25] MEDS: PANTOPRAZOLE 40MG TABLET PO SCH (09:06)
[2019-02-25] MEDS: CIPROFLOXACIN 400mg IV 400 MG/200 ML BAG IV SCH (09:07)
[2019-02-25] MEDS: METRONIDAZOLE 500mg IVPB 500 MG/100 ML BAG IV SCH ×2 (09:07)
[2019-02-25 09:51] LABS: Urine White Blood Cell Casts OK
[2019-02-25 09:52] LABS: Blood Morphology Comment NOT SEEN (NOT SEEN); Platelet Estimate ADEQ
[2019-02-25 10:18] LABS: Lipase 411 U/L (73-393)
[2019-02-25] MEDS ORDERED: NA CHLORIDE 0.9% 500 ML ONE (10:21)
[2019-02-25 12:44] VITALS: BP 108/42; TEMP 97.6
[2019-02-25 12:48] VITALS: O2SAT 97
--- NOTE | 2019-02-25 22:11 | PN ---
Date of Progress Note: 02/25/2019 Diagnosis: Pancreatitis. Subjective: This is the case of a 68-year-old patient, comes to us with pancreatitis. Etiology of t hat is unknown, although we have gallstones, we do not see any blockage of the common bile duct or pa ncreas by the stone. We are still working on differential diagnosis for pancreatitis. The patient i s feeling better. She is tolerating diet. No more pain anymore. Review of Systems: Ten points, otherwise unremarkable. Objective: General: The patient is awake and alert. No distress. HEENT: Pupils are equal and reactive, anicteric. Neck: Supple. Abdomen: Soft and depressible. No guarding or rebound. No peritoneal signs. Laboratory Data: Blood work shows a WBC count of 9.8. Total bili of 0.5. Normal alkaline phosphate , normal at 101. Lipase 411 coming down from 1000. Assessment And Plan: A 68-year-old patient with pancreatitis. Plan will be whenever she goes home, she was advised to keep a low-fat diet. When the pancreas improves, we advise her to have a cholecys tectomy done since she has symptoms in the past, although we cannot connect her at this time with the one that to be the cause of the pancreatitis in the future added to whatever cause at this time. She understands also she want to be selectively going to advance diet and see if she improves. KARMEN/LEAH Voice ID: [id number] Report ID: [id number]
--- NOTE | 2019-02-26 10:42 | DS ---
Date of Discharge: 02/25/2019 Information Tech: Shade Valerio MD, General Surgery. Admitting Diagnoses: 1.Acute symptomatic cholelithiasis without obstruction. 2.Acute duodenitis. 3.Elevated lipase level, possible gallstone pancreatitis. 4.Non-intractable nausea and vomiting. 5.Essential hypertension. 6.Diabetes mellitus type 2, bvp-hlxkqdl-iaebkqjtm with hyperglycemia. 7.Mixed hyperlipidemia. 8.Obesity, BMI of 30.9. Discharge Diagnoses: 1.Acute symptomatic cholelithiasis without obstruction, improved. 2.Acute duodenitis, improving. 3.Elevated lipase levels likely due to gallstone pancreatitis or recently passed stones, resolved. 4.Non-intractable nausea and vomiting secondary to above, resolved, tolerating p.o. diet. 5.Essential hypertension, stable. 6.Diabetes mellitus type 2, rtt-yzrlupp-epcjpgcgu with hyperglycemia. 7.Mixed hyperlipidemia. Continue statin. 8.Obesity, BMI of 30.9. Hospital Course: The patient is a 68-year-old female, who comes in with abdominal pain secondary to cholelithiasis. The patient did not have any obstruction found on imaging studies. She did have juan e duodenitis and was started on IV antibiotics. The patient did well through the course of the hospi brittney stay. She was seen by Dr. Valerio, who did not recommend immediate cholecystectomy due to infla mmation of the duodenitis and a possible gallstone pancreatitis. MRCP was negative. Her lipase leve l trended down. She responded well to IV fluids and pain medications. Her pain resolved. She was n o longer nauseated or vomiting. She was able to tolerate a GI soft diet. The patient was then clear ed for discharge from surgery standpoint. Medications: As per medication reconciliation list. Followup: Follow up with primary care physician in 2 to 3 days. Follow up with surgeon, Dr. Yi ferreira in 2 weeks to schedule cholecystectomy. Return to ER for worsening condition. Diet: Diabetic diet. No fried or fatty foods. Activity: As tolerated. Physical Examination: General: Awake, alert, and oriented x3, not in any acute distress, obese female. CV: S1, S2. No murmur. Respiratory: Moving air well bilaterally. Abdomen: Soft, nontender, nondistended. Positive bowel sounds. Extremities: No clubbing, cyanosis, or edema. Neurologic: Nonfocal. Total time spent discharging the patient was 35 minutes. SA/MODL Voice ID: [id number] Report ID: [id number]
--- NOTE | 2019-02-27 11:26 | EKG ---
Test Date: 2019-02-23 Test Time: 17:37:41 [employer]: ROSEANNA MEASUREMENT RESULTS: Intervals: Rate: 67 VT: 152 QRSD: 98 QT: 394 QTc: 416 [place]: P: 0 VT: 152 QRS: 17 T: 43 INTERPRETIVE STATEMENTS: Normal sinus rhythm Normal ECG Compared to ECG 05/14/2000 19:35:00 Left ventricular hypertrophy no longer present Electronically Signed On 02-23-19 18:20:37 CDT by Dalton Mccann
== END 2019-02-25 15:13 | disposition home or self-care (01) | DRG 446 ==
LOC: ER 06:42 → ERHOLD 10:50 → 4TH 14:22
PROVIDERS: ADMIT Family Medicine; ATTEND Family Medicine
DX: K80.80 Other cholelithiasis without obstruction (principal); K29.80 Duodenitis without bleeding; R74.8 Abnormal levels of other serum enzymes; I10 Essential (primary) hypertension; E11.65 Type 2 diabetes mellitus with hyperglycemia; Z79.84 Long term (current) use of oral hypoglycemic drugs; E78.2 Mixed hyperlipidemia; E66.9 Obesity, unspecified; Z68.30 Body mass index [BMI] 30.0-30.9, adult; Z88.0 Allergy status to penicillin
CPT/HCPCS: 36415; 74177; 74181; 76705; 80048; 80053; 80076; 81003; 82962; 83690; 83735; 85025; 93005; 94760; 96365; 96375; 99285; J0696; J0744; J1650; J2175; J2270; J2405; Q9967

== ENCOUNTER 2019-03-05 13:13 | Emergency (ER) | payer OTHER ==
[2019-03-05 14:48] LABS: Absolute Lymphocytes (CBC) 1.7 K/uL (0.7-4.9); Absolute Monocytes 0.8 K/uL (0.1-1.3); Absolute Neutrophil 6.6 K/uL (1.8-8.0); Basophils % 0.5 % (0-1.3); Eosinophils % 0.6 % (0-4.4); Hematocrit 42.6 % (36.0-45.0); Lymphocytes % 18.6 % (15.3-44.8); MPV 9.7 fL (7.6-11.3); Monocytes % 8.6 % (3.3-12.3); RBC Red Blood Cell Count 4.62 M/uL (3.86-4.86)
[2019-03-05 14:53] LABS: Protime INR 1.13
[2019-03-05] MEDS ORDERED: FENTANYL CITR 100 MCG/2 ML ONE (15:01)
[2019-03-05] MEDS ORDERED: FAMOTIDINE 20 MG/2 ML VIAL IV ONE (15:01)
[2019-03-05] MEDS ORDERED: ONDANSETRON 4 MG/2 ML VIAL ONE (15:01)
[2019-03-05] MEDS ORDERED: NA CHLORIDE 0.9% 1,000 ML ONE (15:01)
[2019-03-05 15:14] LABS: ALT/SGPT 31 U/L (12-78); AST/SGOT 29 U/L (15-37); Albumin 3.8 g/dL (3.4-5.0); Alkaline Phosphatase 81 U/L (45-117); BUN Blood Urea Nitrogen 6 mg/dL (7-18); Bicarbonate 25 mmol/L (21-32); Bilirubin Direct 0.1 mg/dL (0-0.2); Bilirubin Total 0.3 mg/dL (0.2-1.0); Glucose Level 96 mg/dL (74-106); Lipase 288 U/L (73-393); Magnesium 2.3 mg/dL (1.8-2.4); NT PRO-BNP 83 pg/mL (<125); Potassium 3.6 mmol/L (3.5-5.1); Protein, Total 7.8 g/dL (6.4-8.2); Sodium Level 142 mmol/L (136-145); Troponin (Emerg Dept Use Only) < 0.02 ng/mL (0.0-0.045)
--- NOTE | 2019-03-05 16:06 | RAD REPORT ---
EXAM DESCRIPTION: CT - Abdomen Pelvis W Contrast - 03/05/2019 3:43 pm CLINICAL HISTORY: Abdominal pain. COMPARISON: February 23, 2018 TECHNIQUE: Computed axial tomography of the abdomen and pelvis was obtained. 100 cc Isovue-300 is ad ministered intravenously. Oral contrast was given. All CT scans are performed using dose optimization technique as appropriate and may include automated exposure control or mA/KV adjustment according to patient size. FINDINGS: The liver, spleen, pancreas, adrenals and kidneys appear unremarkable. The appendix is normal caliber. There is no evidence of diverticulitis Duodenal diverticulum present Hysterectomy IMPRESSION: No acute abnormality displayed
--- NOTE | 2019-03-05 16:23 | EKG ---
Test Date: 2019-03-05 Test Time: 14:28:10 Custodial Aide: ROSEANNA MEASUREMENT RESULTS: Intervals: Rate: 64 AR: 146 QRSD: 92 QT: 432 QTc: 445 [place]: P: -5 AR: 146 QRS: 2 T: 1 INTERPRETIVE STATEMENTS: Normal sinus rhythm Normal ECG Compared to ECG 02/23/2019 17:37:41 No significant changes Electronically Signed On 03-05-19 16:23:29 CDT by Dalton Mccann
--- NOTE | 2019-03-05 16:29 | EDPHYS ---
Physician Documentation [facility] Name: Wandy Marks Age: 68 yrs Sex: Female : 1950 Arrival Date: 03/05/2019 Time: 13:17 Bed 24 Private MD: None, None ED Physician Jerad Alvarado HPI: 03/05 14:16 This 68 yrs old Female presents to ER via Ambulatory with complaints of baldev Abdominal Pain. 14:16 The patient presents with abdominal pain abdominal distention in the upper abdomen, in baldev the lower abdomen. Onset: The symptoms/episode began/occurred 2 day(s) ago. The patient presents with pain that is acute. The symptoms are located in the thoracic area and lumbar area. Onset: The symptoms/episode began/occurred 2 day(s) ago. The pain radiates to the thoracic area and lumbar area. Associated signs and symptoms: The patient has no apparent associated signs or symptoms. Severity of symptoms: At their worst the symptoms were mild, moderate, in the emergency department the symptoms are unchanged. Historical: - Allergies: 13:39 PENICILLINS; ss - Home Meds: 13:39 carvedilol 12.5 mg Oral tab [Active]; losartan 100 mg Oral tab [Active]; Jentadueto ss 2.5-500 mg Oral tab [Active]; - PMHx: 13:39 Diabetes - NIDDM; High Cholesterol; Hypertension; Pancreatitis; ss - PSHx: 13:39 Hysterectomy; Tonsillectomy; ss - Immunization history:: Adult Immunizations up to date. - Social history:: Smoking status: Patient/guardian denies using tobacco. - Ebola Screening: : Patient denies exposure to infectious person Patient denies travel to an Ebola-affected area in the 21 days before illness onset. - Family history:: not pertinent. ROS: 14:16 Constitutional: Negative for fever, chills, and weight loss, Eyes: Negative for injury, baldev pain, redness, and discharge, ENT: Negative for injury, pain, and discharge, Neck: Negative for injury, pain, and swelling, Cardiovascular: Negative for chest pain, palpitations, and edema, Respiratory: Negative for shortness of breath, cough, wheezing, and pleuritic chest pain, Back: Negative for injury and pain, : Negative for injury, bleeding, discharge, and swelling, MS/Extremity: Negative for injury and deformity, Skin: Negative for injury, rash, and discoloration, Neuro: Negative for headache, weakness, numbness, tingling, and seizure. 14:16 Abdomen/GI: Positive for abdominal pain. Exam: 14:16 Constitutional: This is a well developed, well nourished patient who is awake, alert, baldev and in no acute distress. Head/Face: Normocephalic, atraumatic. Eyes: Pupils equal round and reactive to light, extra-ocular motions intact. Lids and lashes normal. Conjunctiva and sclera are non-icteric and not injected. Cornea within normal limits. Periorbital areas with no swelling, redness, or edema. ENT: Nares patent. No nasal discharge, no septal abnormalities noted. Tympanic membranes are normal and external auditory canals are clear. Oropharynx with no redness, swelling, or masses, exudates, or evidence of obstruction, uvula midline. Mucous membranes moist. Neck: Trachea midline, no thyromegaly or masses palpated, and no cervical lymphadenopathy. Supple, full range of motion without nuchal rigidity, or vertebral point tenderness. No Meningismus. Chest/axilla: Normal chest wall appearance and motion. Nontender with no deformity. No lesions are appreciated. Cardiovascular: Regular rate and rhythm with a normal S1 and S2. No gallops, murmurs, or rubs. Normal PMI, no JVD. No pulse deficits. Respiratory: Lungs have equal breath sounds bilaterally, clear to auscultation and percussion. No rales, rhonchi or wheezes noted. No increased work of breathing, no retractions or nasal flaring. Back: No spinal tenderness. No costovertebral tenderness. Full range of motion. Female : Normal external genitalia. Skin: Warm, dry with normal turgor. Normal color with no rashes, no lesions, and no evidence of cellulitis. MS/ Extremity: Pulses equal, no cyanosis. Neurovascular intact. Full, normal range of motion. Neuro: Awake and alert, GCS 15, oriented to person, place, time, and situation. Cranial nerves II-XII grossly intact. Motor strength 5/5 in all extremities. Sensory grossly intact. Cerebellar exam normal. Normal gait. Psych: Awake, alert, with orientation to person, place and time. Behavior, mood, and affect are within normal limits. 14:16 Abdomen/GI: Inspection: abdomen appears normal, Bowel sounds: normal, Palpation: mild abdominal tenderness, moderate abdominal tenderness, in the epigastric area, right upper quadrant and left upper quadrant, Liver: no appreciated palpable abnormalities, Hernia: not appreciated. Vital Signs: 13:39 BP 147 / 73; Pulse 68; Resp 16; Temp 97.6(TE); Pulse Ox 98% on R/A; Weight 74.84 kg; ss Height 4 ft. 11 in. (149.86 cm); Pain 7/10; 14:03 BP 145 / 72; Pulse 62; Resp 18; Pulse Ox 97% on R/A; aj1 15:00 BP 146 / 66 LA Supine; Pulse 57; Resp 16 S; Pulse Ox 98% on R/A; rv 16:00 BP 145 / 63 RA Supine; Pulse 58; Resp 16 S; Pulse Ox 100% on R/A; rv 17:47 BP 144 / 78; Pulse 60; Resp 16; Pulse Ox 97% ; rv 13:39 Body Mass Index 33.33 (74.84 kg, 149.86 cm) MDM: 14:[address] [facility] 14:19 Data reviewed: vital signs, nurses notes, lab test result(s), EKG, radiologic studies, [facility] CT scan, plain films. 03/05 14:14 Order name: Basic Metabolic Panel; Complete Time: 15:54 [facility] 03/05 14:14 Order name: CBC with Diff; Complete Time: 15:54 [facility] 03/05 14:14 Order name: LFT's; Complete Time: 15:54 [facility] 03/05 14:14 Order name: Magnesium; Complete Time: 15:54 [facility] 03/05 14:14 Order name: NT PRO-BNP; Complete Time: 15:54 [facility] 03/05 14:14 Order name: PT-INR; Complete Time: 15:54 [facility] 03/05 14:14 Order name: Troponin (emerg Dept Use Only); Complete Time: 15:54 [facility] 03/05 14:14 Order name: XRAY Chest (1 view); Complete Time: 17:03 [facility] 03/05 14:14 Order name: Lipase; Complete Time: 15:54 [facility] 03/05 14:14 Order name: CT Abd/Pelvis - W/Contrast; Complete Time: 16:14 [facility] 03/05 14:15 Order name: Urine Culture [facility] 03/05 14:14 Order name: EKG; Complete Time: 14:15 [facility] 03/05 14:14 Order name: Cardiac monitoring; Complete Time: 14:57 [facility] 03/05 14:14 Order name: EKG - Nurse/Tech; Complete Time: 14:38 [facility] 03/05 14:14 Order name: IV Saline Lock; Complete Time: 14:38 [facility] 03/05 14:14 Order name: Labs collected and sent; Complete Time: 14:38 [facility] 03/05 14:14 Order name: O2 Per Protocol; Complete Time: 14:38 [facility] 03/05 14:14 Order name: O2 Sat Monitoring; Complete Time: 14:38 [facility] 03/05 14:15 Order name: Urine Dipstick-Ancillary (obtain specimen); Complete Time: 14:57 [facility] Administered Medications: 14:56 Drug: fentaNYL (PF) 25 mcg Route: IVP; Site: left antecubital; rv 17:46 Follow up: Response: Pain is decreased rv 14:57 Drug: Zofran 4 mg Route: IVP; Site: left antecubital; rv 17:46 Follow up: Response: Nausea is decreased rv 14:57 Drug: NS 0.9% 1000 ml Route: IV; Rate: 1 bolus; Site: left antecubital; rv 17:44 Follow up: IV Status: Completed infusion rv 17:47 Follow up: IV Intake: 1000ml rv 14:57 Drug: Pepcid 20 mg Route: IVP; Site: left antecubital; rv 17:46 Follow up: Response: No adverse reaction rv 16:45 Drug: levofloxacin 500 mg Volume: 100 ml; Route: IVPB; Infused Over: 60 mins; Site: rv left antecubital; 17:44 Follow up: IV Status: Completed infusion rv 17:30 Drug: Bactrim (160 mg-800 mg (DS) 1 tablet Route: PO; rv 17:46 Follow up: Response: No adverse reaction rv 17:45 Not Given (Patient Refused): fentaNYL (PF) 25 mcg IVP once rv Disposition: 03/05/19 16:29 Discharged to Home. Impression: Abdominal tenderness, Cholelithiasis, Type 2 diabetes mellitus, Urinary tract infection, site not specified. - Condition is Stable. - Discharge Instructions: Abdominal Pain, Adult, Type 2 Diabetes Mellitus, Diagnosis, Adult, Urinary Tract Infection, Adult, Cholelithiasis, Acute Pancreatitis, Pclt-gk-Cxjy, Cholelithiasis, Gtej-wy-Vrwt, Urinary Tract Infection, Adult, Gxkr-ad-Olxd, Abdominal Pain, Adult, Xewu-ke-Drjj, Type 2 Diabetes Mellitus, Diagnosis, Adult, Dvbo-ug-Ckwh. - Prescriptions for Bentyl 20 mg Oral Tablet - take 1 tablet by ORAL route every 6 hours As needed; 20 tablet. Pepcid 20 mg Oral Tablet - take 1 tablet by ORAL route every 12 hours for 10 days; 20 tablet. Zofran 4 mg Oral Tablet - take 1 tablet by ORAL route every 12 hours As needed; 20 tablet. Bactrim DS 800- 160 mg Oral Tablet - take 1 tablet by ORAL route every 12 hours for 7 days; 14 tablet. - Medication Reconciliation Form, Thank You Letter, Antibiotic Education, Prescription Opioid Use form. - Follow up: Private Physician; When: 2 - 3 days; Reason: Recheck today's complaints, Continuance of care, Re-evaluation by your physician. Follow up: Andrei Taylor MD; When: 2 - 3 days; Reason: Recheck today's complaints, Continuance of care, Re-evaluation by your physician. Follow up: Shade Valerio MD; When: 2 - 3 days; Reason: Recheck today's complaints, Continuance of care, Re-evaluation by your physician. - Problem is new. - Symptoms have improved. Signatures: Dispatcher [employer] EDMS Jerad Alvarado MD MD cha Smirch, Shelby, RN RN ss Jayjay Valladares RN RN rv Corrections: (The following items were deleted from the chart) 16:30 16:29 03/05/2019 16:29 Discharged to Home. Impression: Abdominal tenderness; baldev Cholelithiasis. Condition is Stable. Forms are Medication Reconciliation Form, Thank You Letter, Antibiotic Education, Prescription Opioid Use. Follow up: Private Physician; When: 2 - 3 days; Reason: Recheck today's complaints, Continuance of care, Re-evaluation by your physician. Problem is new. Symptoms have improved. baldev 16:31 16:30 03/05/2019 16:29 Discharged to Home. Impression: Abdominal tenderness; baldev Cholelithiasis; Type 2 diabetes mellitus. Condition is Stable. Forms are Medication Reconciliation Form, Thank You Letter, Antibiotic Education, Prescription Opioid Use. Follow up: Private Physician; When: 2 - 3 days; Reason: Recheck today's complaints, Continuance of care, Re-evaluation by your physician. Problem is new. Symptoms have improved. [facility] 16:32 16:31 03/05/2019 16:29 Discharged to Home. Impression: Abdominal tenderness; baldev Cholelithiasis; Type 2 diabetes mellitus; Urinary tract infection, site not specified. Condition is Stable. Discharge Instructions: Abdominal Pain, Adult, Type 2 Diabetes Mellitus, Diagnosis, Adult, Cholelithiasis, Acute Pancreatitis, Lisc-xm-Iysj, Cholelithiasis, Ncuk-xu-Izsp, Abdominal Pain, Adult, Tfzl-yd-Qdbd, Type 2 Diabetes Mellitus, Diagnosis, Adult, Pmnz-gk-Zulv. Prescriptions for Bentyl 20 mg Oral Tablet - take 1 tablet by ORAL route every 6 hours As needed; 20 tablet, Pepcid 20 mg Oral Tablet - take 1 tablet by ORAL route every 12 hours for 10 days; 20 tablet, Zofran 4 mg Oral Tablet - take 1 tablet by ORAL route every 12 hours As needed; 20 tablet. and Forms are Medication Reconciliation Form, Thank You Letter, Antibiotic Education, Prescription Opioid Use. Follow up: Private Physician; When: 2 - 3 days; Reason: Recheck today's complaints, Continuance of care, Re-evaluation by your physician. Problem is new. Symptoms have improved. [facility] 17:49 16:32 03/05/2019 16:29 Discharged to Home. Impression: Abdominal tenderness; rv Cholelithiasis; Type 2 diabetes mellitus; Urinary tract infection, site not specified. Condition is Stable. Discharge Instructions: Abdominal Pain, Adult, Type 2 Diabetes Mellitus, Diagnosis, Adult, Cholelithiasis, Acute Pancreatitis, Puoq-vb-Muzj, Cholelithiasis, Gglo-wk-Zzox, Abdominal Pain, Adult, Shpb-kx-Uhiy, Type 2 Diabetes Mellitus, Diagnosis, Adult, Ewgf-rg-Maou. Prescriptions for Bentyl 20 mg Oral Tablet - take 1 tablet by ORAL route every 6 hours As needed; 20 tablet, Pepcid 20 mg Oral Tablet - take 1 tablet by ORAL route every 12 hours for 10 days; 20 tablet, Zofran 4 mg Oral Tablet - take 1 tablet by ORAL route every 12 hours As needed; 20 tablet. and Forms are Medication Reconciliation Form, Thank You Letter, Antibiotic Education, Prescription Opioid Use. Follow up: Private Physician; When: 2 - 3 days; Reason: Recheck today's complaints, Continuance of care, Re-evaluation by your physician. Follow up: Andrei Taylor; When: 2 - 3 days; Reason: Recheck today's complaints, Continuance of care, Re-evaluation by your physician. Follow up: Shade Valerio; When: 2 - 3 days; Reason: Recheck today's complaints, Continuance of care, Re-evaluation by your physician. Problem is new. Symptoms have improved. baldev
--- NOTE | 2019-03-05 16:29 | ER ---
Nurse's Notes [facility] Name: Wandy Marks Age: 68 yrs Sex: Female : 1950 Arrival Date: 03/05/2019 Time: 13:17 Bed 24 Private MD: None, None Diagnosis: Abdominal tenderness;Cholelithiasis;Type 2 diabetes mellitus;Urinary tract infection, site not specified Presentation: 03/05 13:37 Presenting complaint: family reports that patient needs her gallbladder removed, but ss she has been battling pancreatitis. Dr. Valerio is waiting for the pancreatitis to subside prior to removing her gallbladder. Patient c/o pain to epigastric area with nausea that began again 1 hour ago. Transition of care: patient was not received from another setting of care. Onset of symptoms was March 05, 2019. Risk Assessment: Do you want to hurt yourself or someone else? Patient reports no desire to harm self or others. Initial Sepsis Screen: Does the patient have a suspected source of infection? No. Patient's initial sepsis screen is negative. Care prior to arrival: None. 13:37 Method Of Arrival: Ambulatory ss 13:37 Acuity: PENNY 3 ss 17:49 Initial Sepsis Screen: Does the patient meet any 2 criteria? No. Patient's initial rv sepsis screen is negative. Historical: - Allergies: 13:39 PENICILLINS; ss - Home Meds: 13:39 carvedilol 12.5 mg Oral tab [Active]; losartan 100 mg Oral tab [Active]; Jentadueto ss 2.5-500 mg Oral tab [Active]; - PMHx: 13:39 Diabetes - NIDDM; High Cholesterol; Hypertension; Pancreatitis; ss - PSHx: 13:39 Hysterectomy; Tonsillectomy; ss - Immunization history:: Adult Immunizations up to date. - Social history:: Smoking status: Patient/guardian denies using tobacco. - Ebola Screening: : Patient denies exposure to infectious person Patient denies travel to an Ebola-affected area in the 21 days before illness onset. - Family history:: not pertinent. Screenin:02 Abuse screen: Denies threats or abuse. Denies injuries from another. Nutritional aj1 screening: No deficits noted. Tuberculosis screening: No symptoms or risk factors identified. 17:49 Fall Risk None identified. rv Assessment: 14:02 General: Appears in no apparent distress. uncomfortable, Behavior is calm, cooperative, aj1 appropriate for age. Pain: Complains of pain in epigastric area and right upper quadrant Pain radiates to back Pain currently is 3 out of 10 on a pain scale. at worst was 8 out of 10 on a pain scale. Quality of pain is described as heavy. Neuro: Level of Consciousness is awake, alert, obeys commands, Oriented to person, place, time, situation. Cardiovascular: Patient's skin is warm and dry. Respiratory: Airway is patent Respiratory effort is even, unlabored, Respiratory pattern is regular, symmetrical. GI: Abdomen is non-distended, Bowel sounds present X 4 quads. Abd is soft X 4 quads Abdomen is tender to palpation in epigastric area and right upper quadrant Reports nausea, Patient currently denies diarrhea, vomiting. : No signs and/or symptoms were reported regarding the genitourinary system. EENT: No signs and/or symptoms were reported regarding the EENT system. Derm: No signs and/or symptoms reported regarding the dermatologic system. Skin is pink, warm \T\ dry. normal. Musculoskeletal: No signs and/or symptoms reported regarding the musculoskeletal system. Circulation, motion, and sensation intact. Vital Signs: 13:39 BP 147 / 73; Pulse 68; Resp 16; Temp 97.6(TE); Pulse Ox 98% on R/A; Weight 74.84 kg; ss Height 4 ft. 11 in. (149.86 cm); Pain 7/10; 14:03 BP 145 / 72; Pulse 62; Resp 18; Pulse Ox 97% on R/A; aj1 15:00 BP 146 / 66 LA Supine; Pulse 57; Resp 16 S; Pulse Ox 98% on R/A; rv 16:00 BP 145 / 63 RA Supine; Pulse 58; Resp 16 S; Pulse Ox 100% on R/A; rv 17:47 BP 144 / 78; Pulse 60; Resp 16; Pulse Ox 97% ; rv 13:39 Body Mass Index 33.33 (74.84 kg, 149.86 cm) ED Course: 13:17 Patient arrived in ED. dl4 13:17 None, None is Private Physician. dl4 13:38 Triage completed. ss 13:39 Arm band placed on right wrist. ss 14:02 Isela Burciaga, RN is Primary Nurse. aj1 14:02 Jerad Alvarado MD is Attending Physician. baldev 14:02 Patient has correct armband on for positive identification. Bed in low position. Call aj1 light in reach. 14:02 No provider procedures requiring assistance completed. aj1 14:38 Initial lab(s) drawn, by me, sent to lab. Inserted saline lock: 22 gauge in left lt1 antecubital area, using aseptic technique. 15:03 EKG done, by computer engineering technician. reviewed by Jerad Alvarado MD. 3 15:40 CT completed. Patient tolerated procedure well. Patient moved to CT via wheelchair. sj Patient moved back from CT. 15:42 CT Abd/Pelvis - W/Contrast In Process Unspecified. EDMS 16:22 XRAY Chest (1 view) In Process Unspecified. EDMS 16:31 Andrei Taylor MD is Referral Physician. baldev 16:32 Shade Valerio MD is Referral Physician. baldev 17:48 IV discontinued, intact, bleeding controlled, No redness/swelling at site. Pressure rv dressing applied. Administered Medications: 14:56 Drug: fentaNYL (PF) 25 mcg Route: IVP; Site: left antecubital; rv 17:46 Follow up: Response: Pain is decreased rv 14:57 Drug: Zofran 4 mg Route: IVP; Site: left antecubital; rv 17:46 Follow up: Response: Nausea is decreased rv 14:57 Drug: NS 0.9% 1000 ml Route: IV; Rate: 1 bolus; Site: left antecubital; rv 17:44 Follow up: IV Status: Completed infusion rv 17:47 Follow up: IV Intake: 1000ml rv 14:57 Drug: Pepcid 20 mg Route: IVP; Site: left antecubital; rv 17:46 Follow up: Response: No adverse reaction rv 16:45 Drug: levofloxacin 500 mg Volume: 100 ml; Route: IVPB; Infused Over: 60 mins; Site: rv left antecubital; 17:44 Follow up: IV Status: Completed infusion rv 17:30 Drug: Bactrim (160 mg-800 mg (DS) 1 tablet Route: PO; rv 17:46 Follow up: Response: No adverse reaction rv 17:45 Not Given (Patient Refused): fentaNYL (PF) 25 mcg IVP once rv Intake: 17:47 IV: 1000ml; Total: 1000ml. rv Outcome: 16:29 Discharge ordered by . baldev 17:48 Discharged to home ambulatory. rv 17:48 Condition: good 17:48 Discharge instructions given to patient, family, Instructed on discharge instructions, follow up and referral plans. medication usage, Demonstrated understanding of instructions, follow-up care, medications, Prescriptions given X 4. 17:49 Patient left the ED. rv Signatures: Dispatcher [employer] EDMS Isela Burciaga RN RN aj1 Jerad Alvarado MD MD cha Jones, Susan sj Smirch, Shelby, RN RN Joselin Gan sm3 Jayjay Valladares RN RN Prasanna Price dl4 Tori Alvarez lt1
--- NOTE | 2019-03-05 16:35 | RAD REPORT ---
EXAM DESCRIPTION: [place] Single View03/05/2019 4:21 pm CLINICAL HISTORY: Abdominal pain COMPARISON: September 2018 FINDINGS: The lungs appear clear of acute infiltrate. The heart is normal size IMPRESSION: No acute abnormalities displayed
[2019-03-05] MEDS ORDERED: Levofloxacin500mg IV 500 MG/100 ML BAG IV ONE (16:45)
[2019-03-05] MEDS ORDERED: SMZ./TMP. 800/160 MG TABLET ONE (17:31)
[2019-03-05 18:41] VITALS: TEMP 97.6
[2019-03-05 18:46] VITALS: BP 144/78; O2SAT 97
== END 2019-03-05 17:49 | disposition home or self-care (01) ==
LOC: ER 13:13
DX: K80.20 Calculus of gallbladder without cholecystitis without obstruction (principal); N39.0 Urinary tract infection, site not specified; E11.9 Type 2 diabetes mellitus without complications; R10.819 Abdominal tenderness, unspecified site; E78.00 Pure hypercholesterolemia, unspecified; I10 Essential (primary) hypertension; Z79.84 Long term (current) use of oral hypoglycemic drugs; Z79.899 Other long term (current) drug therapy
CPT/HCPCS: 96365; 96361; 93005; 87088; 85025; 87086; 80048; 36415; 83735; 85610; 80076; 84484; 83690; 83880; 74177; 71045; 96375; 99284; Q9967; J3010; J7030; J2405

== ENCOUNTER 2019-03-21 05:57 | Day surgery (SDC) | payer OTHER ==
[2019-03-19 15:42] LABS: Absolute Lymphocytes (CBC) 1.8 K/uL (0.7-4.9); Absolute Monocytes 0.6 K/uL (0.1-1.3); Absolute Neutrophil 2.5 K/uL (1.8-8.0); Basophils % 0.8 % (0-1.3); Eosinophils % 2.2 % (0-4.4); Hematocrit 44.4 % (36.0-45.0); Lymphocytes % 35.9 % (15.3-44.8); MPV 11.2 fL (7.6-11.3); Monocytes % 12.5 % (3.3-12.3); RBC Red Blood Cell Count 4.77 M/uL (3.86-4.86)
[2019-03-19 15:59] LABS: Albumin 4.1 g/dL (3.4-5.0); Bilirubin Direct 0.2 mg/dL (0-0.2); Bilirubin Total 0.7 mg/dL (0.2-1.0); Potassium 4.5 mmol/L (3.5-5.1)
[2019-03-21] MEDS ORDERED: NA CHLORIDE 0.9% 1,000 ML ONE (06:21)
[2019-03-21] MEDS ORDERED: MIDAZOLAM HCL 2 MG/2 ML INJ ONE (07:27)
[2019-03-21] MEDS ORDERED: FENTANYL CITR 250 MCG/5 ML ONE (07:27)
[2019-03-21] MEDS ORDERED: PROPOFOL 200 MG/20 ML VIAL IV ONE (07:27)
[2019-03-21] MEDS ORDERED: GLYCOPYRROLATE 0.2 MG/ML SYR ONE (07:27)
[2019-03-21] MEDS ORDERED: LIDOCAINE 2% MPF 5 ML VIAL ONE (07:27)
[2019-03-21] MEDS ORDERED: CIPROFLOXACIN 400mg IV 400 MG/200 ML BAG IV ONE (07:45)
[2019-03-21] MEDS ORDERED: EPHEDRINE SULF 50 MG/ML VIAL ONE (07:57)
[2019-03-21] MEDS ORDERED: NEOSTIGMINE 1 MG/ML -10 ML VIAL ONE (07:57)
[2019-03-21] MEDS ORDERED: ONDANSETRON 4 MG/2 ML VIAL ONE ×2 (07:57→10:11)
[2019-03-21] MEDS ORDERED: ROCURONIUM 50 MG/5 ML VIAL IV ONE (07:57)
[2019-03-21 09:17] VITALS: O2SAT 100
--- NOTE | 2019-03-21 09:27 | P.BOP ---
Preoperative diagnosis: gallstones pancreatitis, acute cholecystitis Postoperative diagnosis: same Primary procedure: Laparoscopic cholecystectomy Estimated blood loss: <10cc Specimen: gb Findings: as above Anesthesia: General Complications: None Transferred to: Recovery Room Condition: Good
[2019-03-21 09:28] VITALS: TEMP 97.6
[2019-03-21] MEDS ORDERED: CODEINE 30MG/APAP 300MG TAB ONE (10:11)
[2019-03-21 11:05] VITALS: BP 114/54
--- NOTE | 2019-03-22 | OP ---
Date of Procedure: 03/21/2019 Surgeon: Shade Valerio MD Preoperative Diagnoses: 1.Gallstone pancreatitis. 2.Acute cholecystitis. Postoperative Diagnosis: 1.Gallstone pancreatitis. 2.Acute cholecystitis. Procedure: Laparoscopic cholecystectomy. Specimen: Gallbladder. Findings: As above. Anesthesia: General plus local. Indications: This is the case of a female, who comes to us with above diagnosis. Fully explained th e benefits, alternatives, and risks of laparoscopic, possible open cholecystectomy, which include, bu t not limited to infection, bleeding, damage to adjacent structures, anesthesia complication, choledo cholithiasis, bile leak, pancreatitis, [place], and even . She also understands this may not relieve any symptoms. She might need more than one surgical intervention. She understood and signed a cons ent. Description Of Procedure: The patient was brought to the operating room, placed in supine position. Anesthesia was done without complication. Abdominal area was prepped and draped in sterile fashion. Marcaine 0.5% was injected for local anesthetic followed by sharp incision of skin in the periumbil ical region. Incision was carried down to the fascia, which was opened under direct vision. Periton eum was encountered, opened under direct vision. Vicryl #1 placed inside the fascia. Jan trocar was carefully introduced. No bleeding was obtained. I placed 3 more trocars, 5 mm each one of them, in the right upper quadrant under direct visualization. This allowed me to put a grasper in the fun dus of the gallbladder, another grasper in the infundibulum, and retract the gallbladder in the infer olateral fashion exposing the triangle of Calot and obtaining a critical view of safety. Cystic duct and cystic artery were clearly isolated, freed circumferentially, and a connection between those and the gallbladder were clearly identified. I proceeded to ligate those by using at least 3 clips prox imal, 1 clip distal, ligation in middle. Same was done with the cystic artery. No bile leak. No bl eeding. Gallbladder was removed from liver using Bovie cauterizer and removed from the abdominal cav ity using EndoCatch through the umbilical incision. The area was inspected once again. No bile leak . No bleeding. At that moment, I proceeded to remove the trocars under direct vision, deflated the pneumoperitoneum, closed the fascia with #1 Vicryl. Irrigated subcutaneous tissue, closed that with 3-0 chromic and skin with 3-0 chromic in a subcuticular fashion. Sponge count and instrument counts were correct. The patient tolerated the procedure well. The patient was sent to recovery in stable condition. KARMEN/LEAH Voice ID: [id number] Report ID: [id number]
--- NOTE | 2019-03-22 00:03 | DS ---
Date of Discharge: 03/21/2019 Diagnoses: 1.Gallstone pancreatitis. 2.Acute cholecystitis. Procedure: Laparoscopic cholecystectomy. Disposition: Home. Activity: As tolerated. No heavy lifting Followup: Follow up in my office in 1 week. Call for appointment at [phone]. Keep the area dry fo r 48 hours, then may shower. Keep Steri-Strips intact. Medications: See orders. KARMEN/LEAH Voice ID: [id number] Report ID: [id number]
== END 2019-03-21 11:06 | disposition home or self-care (01) ==
LOC: OR 05:57
PROVIDERS: ATTEND Surgery
PROC: 0FT44ZZ Resection of Gallbladder, Percutaneous Endoscopic Approach (ICD-10-PCS; principal; 2019-03-21 07:30)
DX: K80.12 Calculus of gallbladder with acute and chronic cholecystitis without obstruction (principal); E11.9 Type 2 diabetes mellitus without complications; I10 Essential (primary) hypertension; Z79.84 Long term (current) use of oral hypoglycemic drugs; Z79.899 Other long term (current) drug therapy; Z87.19 Personal history of other diseases of the digestive system
CPT/HCPCS: 47562; 85025; 80048; 36415; 82150; 82962; 80076; 88304; 83690; J2704; J2710; J2250; J3010; J7030; J2405 ×2; J0744; 88305

== ENCOUNTER 2020-04-30 06:10 | Inpatient (IN) | payer OTHER ==
[2020-04-23 09:18] LABS: Absolute Lymphocytes (CBC) 1.6 K/uL (0.7-4.9); Basophils % 0.6 % (0-1.3); Hematocrit 40.9 % (36.0-45.0); Lymphocytes % 23.8 % (15.3-44.8); MPV 10.3 fL (7.6-11.3); RBC Red Blood Cell Count 4.42 M/uL (3.86-4.86)
[2020-04-23 09:24] LABS: Protime INR 0.91
[2020-04-23 09:32] LABS: BUN Blood Urea Nitrogen 14 mg/dL (7-18); Bicarbonate 27 mmol/L (21-32); Glucose Level 116 mg/dL (74-106); Potassium 4.3 mmol/L (3.5-5.1); Sodium Level 140 mmol/L (136-145)
--- OUTSIDE RECORDS SUMMARY | 2020-04-30 06:13 | XMS REPORT ---
:1950 Author Organization [employer] Care Team Providers Name Role Phone Josue Nova Provider Role Unavailable Allergies No Known Allergies Problems Problem Type Condition Code Onset Dates Condition Statu s Problem Primary osteoarthritis of left knee M17.12 Active Medications No Known Medications Results No Known Results Summary Purpose eClinicalWorks Submission
--- OUTSIDE RECORDS SUMMARY | 2020-04-30 06:13 | XMS REPORT | Continuity of Care Document ---
:1950 Author Organization [facility] t Address [address] [place] [address] Care Team Providers Name Role Phone Unavailable Unavailable Unavailable Problems Condition Condition Condition Status Onset Resolution Last Treating Co mments Source Name Details Category Date Date Treatment Clinician Date Primary Primary Diagnosis Active [facility]i [facility] knee [facility] Pain, Pain, Diagnosis Active [facility] - [facility], left knee, left Me moria l [facility] Allergies, Adverse Reactions, Alerts Allergy Allergy Status Severity Reaction(s) Onset Inactive Treating Comm ents Source Name Type Date Date Clinician Peniclli Adverse Active Info Not [facility] Reaction Available [facility] Jardianc Adverse Active Info Not [facility] Reaction Available [facility] Invokana Adverse Active Info Not [facility] Reaction Available [facility] Metformi Adverse Active Info Not [facility] HCl Reaction Available [facility] Medications Ordered Filled Start Stop Current Ordering Indication Dosage Frequency Signature Comments Components Source Medication Medication Date Date Medication? Clinician (SIG) Name Name Xarelto Xarelto Yes Josue [address] [facility] 6[facility]03 [facility] Nystatin Nystatin Yes Josue not [facility] defined [facility] Losartan Losartan Yes Josue not [facility] Potassium Potassium Nova defined Randi kes [facility] Symbicort Symbicort Yes Josue not [facility] defined [facility] Lansoprazol Lansoprazol Yes Josue not [facility] e e [facility] defined [facility] Ondansetron Ondansetron Yes Josue not [facility] HCl HCl [facility] defined [facility] Carvedilol Carvedilol Yes Josue not [facility] Clarithromy Clarithromy Yes Josue not [facility] shayy shayy [facility] defined [facility] Neomycin-Po Neomycin-Po Yes Josue not [facility] lymyxin-HC lymyxin-HC [facility] defined [facility] Sulfamethox Sulfamethox Yes Josue not [facility] azole-Trime azole-Trime [facility] defined [facility] thoprim thoprim [facility] Esomeprazol Esomeprazol Yes Josue not [facility] e Magnesium e Magnesium [facility] defined [facility] Acetaminoph Acetaminoph Yes Josue not [facility] en-Codeine en-Codeine [facility] defined [facility] Dicyclomine Dicyclomine Yes Josue not [facility] HCl HCl [facility] defined [facility] Pantoprazol Pantoprazol Yes Josue not [facility] e Sodium e Sodium Nova defined [facility] Jentadueto Jentadueto Yes Josue not [facility] defined [facility] Famotidine Famotidine Yes Josue not [facility] defined [facility] Metronidazo Metronidazo Yes Josue not [facility] le [facility] Triamcinolo Triamcinolo Yes Josue not [facility] ne ne [facility] defined [facility] - Acetonide Acetonide [facility] Duexis Duexis Yes Jsoue not [facility] Ciprofloxac Ciprofloxac Yes Josue not [facility] in HCl in HCl [facility] defined [facility] Procedures This patient has no known procedures. Encounters Start End Encounter Admission Attending Care Care Encounter Source Date/Time Date/Time Type Type Clinicians Facility Department ID 2020-04-17 2020-04-17 [facility] [id number] [facility] 15[facility] 2020-03-11 2020-03-11 [facility] [id number] [facility] 09[facility]06:00 09:06:00 [facility] 2020-02-18 2020-02-18 [facility] [id number] [facility] 15:20:00 15:20:00 [facility] 2019-12-19 2019-12-19 [facility] [id number] [facility] [address] 10:34:00 10:34:00 [facility] 2019-12-19 2019-12-19 [facility] [id number] [facility] [address] 10:18:00 10:18:00 [facility] 2019-12-10 2019-12-10 [facility] [id number] [facility] 08:00[facility]00 08:00[facility]00 [facility] Results This patient has no known results.
--- OUTSIDE RECORDS SUMMARY | 2020-04-30 06:13 | XMS REPORT ---
:1950 Author Organization [employer]Works Care Team Providers Name Role Phone Josue Nova Provider Role Unavailable Allergies, Adverse Reactions, Alerts Substance Reaction Event Type Penicllin Info Not Available Drug Allergy Jardiance Info Not Available Drug Allergy Invokana Info Not Available Drug Allergy Metformin HCl Info Not Available Drug Allergy Problems Problem Type Condition Code Onset Dates Condition Statu s Assessment Pain, joint, knee, left M25.562 Acti ve Problem Primary osteoarthritis of left knee M17.12 Active Assessment Primary osteoarthritis of left knee M17.12 Active Medications Medication Code Code Instructions Start End Status Dosage System Date Date Losartan [facility] [address]-13 Active not Potassium defined Symbicort [facility] [address]-24 Active not defined Ciprofloxacin HCl [facility] [address]-03 Active not defined Dicyclomine HCl [facility] [address]-85 Active no t defined Jentadueto [facility] 18307211206 Active not defined Clarithromycin [facility] [address]-85 Active not defined Triamcinolone [facility] [address]-94 Active not Acetonide defined Nystatin ND 0 Active not defined Famotidine [facility] [address]-42 Active not defined Pantoprazole [facility] [address]-44 Active not Sodium defined Carvedilol [facility] [address]-13 Active not defined Metronidazole [facility] [address]-25 Active not defined Lansoprazole [facility] [address]-74 Active not defined Neomycin-Polymyxi [facility] [address]-62 Active not n-HC defined Duexis [facility] [address]-32 Active not defined Esomeprazole ND 0 Active not Magnesium defined Xarelto [facility] 24145961693 10 MG Orally April 23, Active 1 tabl et Once a day 2019 Acetaminophen-Cod [facility] [address]-25 Active not eine #3 defined Ondansetron HCl [facility] [address]-44 Active no t defined Sulfamethoxazole- [facility] [address]-38 Active not Trimethoprim defined Results No Known Results Summary Purpose eClinicalWorks Submission
[2020-04-30] MEDS ORDERED: NA CHLORIDE 0.9% 1,000 ML ONE (06:27)
[2020-04-30] MEDS ORDERED: NS 0.9% VIAL 20 ML ONE (06:48)
[2020-04-30] MEDS ORDERED: BUPIVACAINE 0.25% PF 10 ML VIAL ONE (06:49)
[2020-04-30] MEDS ORDERED: dexAMETHasone 10 MG/ML VIAL ONE (06:49)
[2020-04-30] MEDS ORDERED: LIDOCAINE 1% MPF 5 ML VIAL ONE (06:49)
[2020-04-30] MEDS ORDERED: FENTANYL CITR 250 MCG/5 ML ONE (06:52)
[2020-04-30] MEDS ORDERED: MIDAZOLAM HCL 2 MG/2 ML INJ ONE (06:52)
[2020-04-30] MEDS ORDERED: CLINDAMYCIN INJ 600 MG in NA CHLORIDE 0.9% 50 ML IV SCH (07:00)
[2020-04-30] MEDS ORDERED: BUPIVACA 0.5%/EPI 0.0005%/PF 30 ML VIAL ONE (07:14)
[2020-04-30] MEDS ORDERED: TRANEXAMIC ACID 1,000 MG in NA CHLORIDE 0.9% 50 ML IV SCH (07:15)
[2020-04-30] MEDS ORDERED: KETAMINE HCL 500 MG/5 ML VIAL ONE (07:30)
[2020-04-30] MEDS ORDERED: propofoL 200 MG/20 ML VIAL IV ONE (07:30)
[2020-04-30] MEDS ORDERED: LIDOCAINE 2% MPF 5 ML VIAL ONE (07:30)
[2020-04-30] MEDS ORDERED: HYDROMORPHONE HCL 1 MG/ML INJ ONE ×2 (07:35→11:05)
[2020-04-30] MEDS ORDERED: EPHEDRINE SULF 50 MG/ML VIAL ONE (07:52)
[2020-04-30] MEDS: NA CHLORIDE 0.9% 1,000 ML ONE ×2 (08:15→08:35)
[2020-04-30] MEDS ORDERED: KETOROLAC 30 MG/ML INJ ONE (09:38)
--- NOTE | 2020-04-30 10:12 | P.BOP ---
Preoperative diagnosis: left knee osteoarthritis Postoperative diagnosis: same Primary procedure: left total knee arthroplasty Hide Dropper: NONE,NONE Estimated blood loss: 20 cc Specimen: left knee bone remnants Findings: see dictation Anesthesia: General Complications: None Drain(s): Urinary catheter Implants: Biomet Dillon 5 Nrw CR Femur, C tibia, 12 mm UC poly, 32 patella Fluids & blood products: per anesthesia record; TT: 86 mins @ 300 mmHg Transferred to: Recovery Room Condition: Good
[2020-04-30] MEDS ORDERED: MORPHINE 2 MG/ML SYR IV PRN (10:20)
[2020-04-30 10:52] LABS: Hematocrit 39.8 % (36.0-45.0)
[2020-04-30] MEDS ORDERED: ONDANSETRON 4 MG/2 ML VIAL ONE (10:52)
--- NOTE | 2020-04-30 11:15 | RAD REPORT ---
EXAM DESCRIPTION: RAD - Knee Left 2 View - 04/30/2020 10:59 am CLINICAL HISTORY: Post Op COMPARISON: No comparisons FINDINGS: Left total knee prosthesis in place. Implant components appear well positioned with no prabhu picious bone or implant finding. Normal postsurgical changes are evident in the soft tissues and joint.
[2020-04-30 12:07] VITALS: BMI 33.2
[2020-04-30] MEDS: CLINDAMYCIN INJ 600 MG in NA CHLORIDE 0.9% 50 ML IV SCH ×2 (12:16→17:09)
[2020-04-30] MEDS ORDERED: DIPHENHYDRAMINE 25 MG TAB/CAP PO PRN (13:14)
[2020-04-30] MEDS ORDERED: TRAMADOL HCL 50 MG TAB PO PRN (13:14)
[2020-04-30] MEDS ORDERED: ONDANSETRON 4 MG/2 ML VIAL IV PRN (13:38)
[2020-04-30] MEDS ORDERED: D50W 25 GM/50 ML SYRINGE/VIAL IV PRN (16:58)
[2020-04-30] MEDS ORDERED: GLUCAGON 1 MG/VIAL IM PRN (16:58)
[2020-04-30] MEDS: METFORMIN HCL PO SCH (17:00)
[2020-04-30] MEDS: LINAGLIPTIN PO SCH (17:00)
[2020-04-30] MEDS: carvediloL 12.5 MG TAB PO SCH (17:09)
[2020-04-30] MEDS: INSULIN -REGULAR HUMAN 50 UNIT/0.5 ML ML SQ SCH ×2 (17:38→21:21)
--- NOTE | 2020-04-30 20:00 | P.OP ---
Preoperative diagnosis: left knee osteoarthritis Postoperative diagnosis: same Primary procedure: left total knee arthroplasty Anesthesia: general Estimated blood loss: 20 cc Specimen: left knee bone remnants Findings: see dictation Operative Technique: Indication For Procedure: Wandy is a 69-year-old male who presented to my clinic with signs, symptoms, and x-ray finding consistent with severe degenerative osteoarthritis of the left knee. The patient failed conservative treatment measures including corticosteroid injection, viscosupplementation injections, oral anti-inflammatories, and a guided home exercise program. I discussed with the patient at length risks, benefits associated with operative and nonoperative treatment, and she expressed understanding and elected to proceed with operative treatment. Description Of Procedure: After informed consent was obtained, the patient was identified in the preoperative holding area. The left lower extremity was marked. The patient underwent an adductor canal nerve block performed by Anesthesia in the recovery room and then was transferred to the operating room. She was transferred to the operating table in supine fashion and placed under general anesthesia. The left lower extremity was then prepped and draped in usual sterile fashion. A time-out was initiated. Correct patient and procedure were confirmed and identified. The patient did receive her preoperative prophylactic antibiotics. The left lower extremity was exsanguinated and the tourniquet inflated to 300 mmHg. Approximately a 15 cm longitudinal incision was made over the anterior aspect of the knee. Dissection was then taken down to the extensor mechanism where a median parapatellar arthrotomy was performed. The patella was dislocated and inverted. Lateral release was performed. Osteophytes were then removed off the patella. Fat pad was removed and the knee was placed in flexion. The medial meniscus, lateral meniscus, and ACL were removed. The fat pad and synovium were removed just proximal to the distal femur and cutting block which had been prepared preoperatively using MRI imaging was then placed over the femur and pins were placed. The distal femoral cutting block was then placed over the pins and distal femur was cut. Bony remnants were removed. Next, a chamfer cutting block was placed over the distal femur where prior pin in place. The setting was locked into position. Anterior- posterior cuts were made as well as the anterior-posterior chamfer cuts. Ayad wings had been used to ensure proper depth to cuts prior to the cuts being made. Bony remnants were removed. Remaining medial and lateral meniscus were removed and the knee was placed in hyperflexion. Soft tissue was then elevated off the proximal medial aspect of the proximal tibia. The tibial cutting block was then placed into position over the proximal tibia and an alignment jeremiah was used to ensure proper alignment. Pins were placed. The cutting jig was then placed over the prior plate pins and the proximal tibial was cut. The bony fragments were then removed and felt to be a pretty even and stable cut. A 10 mm spacer was then placed to ensure proper depth of the cut. There was some mild laxity and it was noted that 12 mm spacer block had better fit and stability. The trial implant including a size 5 CR femur, C tibial tray, 12 mm poly was then placed. There was good overall stability to the knee and good range of motion with full extension and flexion. The PCL was noted to be somewhat degenerative and 12 mm UC poly was selected. Those implants were selected. Next, attention was taken to preparing the patella. A size 32 patella was selected. A patella cutting jig was then used to make appropriate cut to subchondral bone. The patella was drilled. A size 32 patella implant was placed. The knee was place in a range of motion. There was good overall stability to the patella. Tibial tray was marked, and the femoral holes were drilled. A trial femoral implant was removed. A tibial tray was then applied and placed in a proper position, and the tibia was prepared. The knee was then irrigated thoroughly with normal saline using a pulse lavage. A 30 cc of 0.5% Marcaine with epi was then injected in the synovium capsule and periosteum. The cement was prepared on the back table. A size C tibial tray was first placed, followed with excess cement removed using [place] elevators, followed by placement of the size 5 CR narrow femur. Again excess cement was removed using a [place] elevator and a 12 mm trial UC poly was placed. There were good motion and good stability noted. The cement was placed in the underside of the patella and the patella implant was put into position. The knee was held extension until the cement hardened. The trial poly was then removed and a 12 mm UC poly was placed, locked in position. The knee was then again irrigated with normal saline. Tourniquet was let down. Hemostasis was achieved using Bovie cautery. The extensor mechanism was closed interrupted running #1 Vicryl. The deep fascia was then approximated using a 0 Vicryl. Subcu tissue was approximated using a 2-0 Vicryl. The skin was approximated using a 3-0 nylon. Sterile dressings were placed. The patient was awakened, transferred to PACU in stable condition. Postoperative Plan: She will be weightbearing as tolerated. Physical Therapy will be consulted to aid with mobilization, and she will be admitted to the floor for pain management and medical monitoring. Complications: None Drain(s): Urinary catheter Implants: Dillon Persona 5 Narrow CR femur, C tibia, 12 UC poly, 32 patella Fluids & blood products: per anesthesia record; TT: 86 mins @ 300 mmHg Transferred to: Recovery Room Condition: Good
[2020-05-01] MEDS: CLINDAMYCIN INJ 600 MG in NA CHLORIDE 0.9% 50 ML IV SCH (00:41)
[2020-05-01 04:16] LABS: Absolute Lymphocytes (CBC) 0.8 K/uL (0.7-4.9); Basophils % 0.1 % (0-1.3); Hematocrit 36.3 % (36.0-45.0); Lymphocytes % 5.5 % (15.3-44.8); MPV 9.8 fL (7.6-11.3); RBC Red Blood Cell Count 3.89 M/uL (3.86-4.86)
[2020-05-01 04:56] LABS: Blood Morphology Comment NOT SEEN (NOT SEEN); Platelet Estimate ADEQ
[2020-05-01] MEDS: HYDROCODONE/APAP 7.5/325 MG TAB PO PRN ×3 (05:47→21:07)
[2020-05-01] MEDS: LOSARTAN POTASSIUM 50 MG TABLET PO SCH (05:47)
[2020-05-01] MEDS: ENOXAPARIN 30 MG/0.3 ML SQ SCH ×2 (05:47→16:44)
[2020-05-01] MEDS: LINAGLIPTIN PO SCH ×2 (08:00→16:29)
[2020-05-01] MEDS: METFORMIN HCL PO SCH ×2 (08:00→16:29)
[2020-05-01] MEDS: CELECOXIB 100 MG CAPSULE PO SCH (09:05)
[2020-05-01] MEDS: INSULIN -REGULAR HUMAN 50 UNIT/0.5 ML ML SQ SCH ×4 (09:06→21:08)
--- NOTE | 2020-05-01 13:53 | P.PN ---
Subjective Date of Service: 05/01/20 Chief Complaint: s/p left TKA Subjective: Ambulating, Working w/ PT pain controlled Physical Examination - Vital Signs Temperature: 98.1 F Blood Pressure: 112/54 Pulse: 71 Respirations: 16 Pulse Ox (%): 95 - Physical Exam General: Alert, In no apparent distress Musculoskeletal: Other (LLE: dressing c/d/i; EHL/FHL/GSC/TA; sensation grossly intact distally) - Studies Laboratory Data (last 24 hrs) 05/01/20 03:39: Sodium 138, Potassium 4.0, BUN 17, Creatinine 0.68, Glucose 185 H 05/01/20 03:39: WBC 14.9 H D, Hgb 12.0, Hct 36.3, Plt Count 253 Assessment And Plan - Plan Wandy is a 69 yo female s/p left total knee arthroplasty POD #1 -PT to mobilize -elevation in WBC likely stress response -lovenox for DVT prophylaxis -d/c saenz -plan on d/c tomorrow if ambulating safely
[2020-05-01] MEDS: carvediloL 12.5 MG TAB PO SCH (16:44)
[2020-05-01 21:49] VITALS: O2SAT 98
[2020-05-02] MEDS: LOSARTAN POTASSIUM 50 MG TABLET PO SCH (04:28)
[2020-05-02] MEDS: ENOXAPARIN 30 MG/0.3 ML SQ SCH (04:28)
[2020-05-02] MEDS: HYDROCODONE/APAP 7.5/325 MG TAB PO PRN ×2 (04:29→08:43)
[2020-05-02] MEDS: INSULIN -REGULAR HUMAN 50 UNIT/0.5 ML ML SQ SCH ×2 (07:30→11:30)
[2020-05-02] MEDS: CELECOXIB 100 MG CAPSULE PO SCH (08:32)
[2020-05-02] MEDS: LINAGLIPTIN PO SCH (08:32)
[2020-05-02] MEDS: METFORMIN HCL PO SCH (08:32)
--- NOTE | 2020-05-02 10:45 | P.DS ---
Admission Date: 04/30/20 Discharge Date: 05/02/20 Disposition: DC HOME/HOME HEALTH CARE Discharge Condition: GOOD Reason for Admission: s/p left TKA Procedures: Left total knee arthroplasty 04/30/2020 Brief History of Present Illness: Wandy is a 69 yo female with h/o DM admitted to the floor postoperatively from left total knee arthroplasty Hospital Course: Wandy was admitted postoperatively in stable condition to the floor. Physical therapy was consulted to aid with mobilization and she ambulated safely prior to discharge. She was placed on lovenox for DVT prophylaxis during hospitalization and discharged with Xarelto. She was also put on insulin sliding scale and her blood glucose was monitored postop. She was discharged in stable condition on 05/02/2020. Vital Signs/Physical Exam: Temp Pulse Resp BP Pulse Ox 98.2 F 64 16 146/68 H 99 05/02/20 08:00 05/02/20 08:00 05/02/20 08:43 05/02/20 08:00 05/02/20 08:43 Laboratory Data at Discharge: WBC 14.9 K/uL (4.3-10.9) H D 05/01/20 03:39 Hgb 12.0 g/dL (12.0-15.0) 05/01/20 03:39 Hct 36.3 % (36.0-45.0) 05/01/20 03:39 Plt Count 253 K/uL (152-406) 05/01/20 03:39 PT 10.7 SECONDS (9.5-12.5) 04/23/20 08:55 INR 0.91 04/23/20 08:55 APTT 28.5 SECONDS (24.3-36.9) 04/23/20 08:55 Sodium 138 mmol/L (136-145) 05/01/20 03:39 Potassium 4.0 mmol/L (3.5-5.1) 05/01/20 03:39 BUN 17 mg/dL (7-18) 05/01/20 03:39 Creatinine 0.68 mg/dL (0.55-1.3) 05/01/20 03:39 Glucose 185 mg/dL (74-106) H 05/01/20 03:39 Home Medications: Linagliptin/Metformin HCl [Jentadueto 2.5 mg-500 mg Tab] 1 tab PO BIDWM 02/23/19 Losartan Potassium 100 mg PO [id number] 02/23/19 carvediloL [Carvedilol] 12.5 mg PO DAILY AFTER SUPPER 02/23/19 Hydrocodone 7.5/APAP 325 [Thorpe 7.5/325 mg*] 1 tab PO Q4H PRN tab 05/02/20 Patient Discharge Instructions: keep dressing clean and dry; begin Xarelto tomorrow in the morning 05/03/2020. Diet: ADA Activity: Weight bearing as tolerated (LLE) Followup: Josue Nova MD [ACTIVE - CAN ADMIT] - 1-2 Weeks
[2020-05-02 12:22] VITALS: BP 140/65; TEMP 96.7
== END 2020-05-02 13:03 | disposition home health service (06) | DRG 470 ==
LOC: OR 06:10 → 2ND 10:42
PROVIDERS: ADMIT Orthopaedic Surgery Sports Medicine; ATTEND Orthopaedic Surgery Sports Medicine
PROC: 0SRD0J9 Replacement of Left Knee Joint with Synthetic Substitute, Cemented, Open Approach (ICD-10-PCS; principal; 2020-04-30 07:30)
DX: M17.12 Unilateral primary osteoarthritis, left knee (principal); I10 Essential (primary) hypertension; E11.9 Type 2 diabetes mellitus without complications; K21.9 Gastro-esophageal reflux disease without esophagitis; Z90.49 Acquired absence of other specified parts of digestive tract; Z90.711 Acquired absence of uterus with remaining cervical stump; Z79.51 Long term (current) use of inhaled steroids; Z79.899 Other long term (current) drug therapy; Z86.73 Personal history of transient ischemic attack (TIA), and cerebral infarction without residual deficits; Z88.0 Allergy status to penicillin; Z88.8 Allergy status to other drugs, medicaments and biological substances
CPT/HCPCS: 36415; 80048; 82947; 85014; 85018; 85025; 85610; 85730; 88305; 88311; 97110; 97116; 97139; 97161; 97530; J1100; J1170; J1650; J2250; J2405; J2704; J3010; J7030

== ENCOUNTER 2025-01-28 13:05 | Emergency (ER) | payer OTHER ==
--- NOTE | 2025-01-28 14:37 | RAD REPORT ---
Exam:Knee Left 3 View HISTORY: Left knee pain FINDINGS: No fracture or dislocation seen Knee prosthesis in place.
--- NOTE | 2025-01-28 14:38 | RAD REPORT ---
Exam:Humerus Left CLINICAL HISTORY: Left arm pain FINDINGS: No fracture or dislocation seen Osteoporosis
--- NOTE | 2025-01-28 14:39 | RAD REPORT ---
Exam:Forearm Left Clinical history: Left forearm pain Findings: No fracture or dislocation seen involving the radius/ulna
--- NOTE | 2025-01-28 15:02 | RAD REPORT ---
Exam:Elbow Left 2 View HISTORY: Left elbow pain FINDINGS: Limited two-view series obtained. Elevation of the anterior humeral fat pad in the setting of trauma usually indicates an occult fractu re. No dislocation Subtle transverse lucency within the lateral humeral supracondyle could represent nondisplaced fractu re or prominent trabecula. Another consideration is that the patient has an occult radial neck fracture.
[2025-01-28] MEDS ORDERED: HYDROCODONE/APAP 5/325 MG TAB ONE (15:17)
[2025-01-28] MEDS ORDERED: KETOROLAC 30 MG/ML INJ ONE (15:17)
--- NOTE | 2025-01-28 15:40 | EDPHYS ---
Physician Documentation [facility] Name: Wandy Marks Age: 74 yrs Sex: Female : 1950 Arrival Date: 01/28/2025 Time: 13:05 Bed 11 Private MD: ED Physician Imer Lowe HPI: 01/28 14:08 This 74 yrs old Female presents to ER via Ambulatory with complaints of Fall rn Injury. 14:08 Details of fall: The patient fell from an upright position. Onset: The symptoms/episode rn began/occurred just prior to arrival. Associated injuries: The patient sustained Left arm and left knee. Severity of symptoms: At their worst the symptoms were moderate, in the emergency department the symptoms are unchanged. The patient has experienced a previous episode. Patient reports fall from standing, fell forward, struck left knee and left arm. Reports the majority of her pain is around the left elbow. Has injured left elbow before. No head injury or syncope. No back pain. No chest pain. No abdominal pain.. Historical: - Allergies: 13:50 PENICILLINS; hb - PMHx: 13:50 High Cholesterol; Diabetes - NIDDM; Hypertension; Pancreatitis; hb - Immunization history:: Adult Immunizations up to date. - Infectious Disease History:: Denies. - Social history:: Smoking status: Patient denies any tobacco usage or history of. - Family history:: not pertinent. - Hospitalizations: : No recent hospitalization is reported. ROS: 14:08 Constitutional: Negative for fever, chills, and weight loss, Neck: Negative for injury, rn pain, and swelling, Cardiovascular: Negative for chest pain, palpitations, and edema, Respiratory: Negative for shortness of breath, cough, wheezing, and pleuritic chest pain, Abdomen/GI: Negative for abdominal pain, nausea, vomiting, diarrhea, and constipation, Back: Negative for injury and pain, MS/Extremity: Positive for left arm injury and pain as well as left knee injury and pain Skin: Positive for small abrasion to left knee Neuro: Negative for headache, weakness, numbness, tingling, and seizure, Exam: 14:08 Constitutional: This is a well developed, well nourished patient who is awake, alert, rn appears in pain, holding left elbow and arm in passive flexion. Ambulatory to triage without assistance Head/Face: Normocephalic, atraumatic. Neck: No midline cervical tenderness Cardiovascular: Regular rate and rhythm. No pulse deficits. Respiratory: No increased work of breathing, no retractions or nasal flaring. Abdomen/GI: Soft, non-tender Skin: Small abrasion anterior to the left patella MS/ Extremity: Pulses equal, no cyanosis. Neurovascular intact. Somewhat limited range of motion of the left elbow. No focal tenderness. No significant swelling. Small abrasion to the left knee but full range of motion. Neuro: Awake and alert, GCS 15 Vital Signs: 13:50 BP 148 / 88; Pulse 88; Resp 16; Temp 97; Pulse Ox 100% on R/A; Weight 74.39 kg; Height hb 5 ft. 0 in. ; Pain 10/10; 13:50 Body Mass Index 32.03 (74.39 kg, 152.4 cm) hb 13:50 Pain Scale: Adult hb Joo Coma Score: 14:07 Eye Response: spontaneous(4). Motor Response: obeys commands(6). Verbal Response: ap3 oriented(5). Total: 15. Trauma Score (Adult): 14:06 Eye Response: spontaneous(1); Verbal Response: oriented(1); Motor Response: obeys ap3 commands(2); Systolic BP: > 89 mm Hg(4); Respiratory Rate: 10 to 29 per min(4); Joo Score: 15; Trauma Score: 12 MDM: 13:16 Medical Screening Exam initiated rn 15:38 Differential diagnosis: contusion, fracture, sprain. Data reviewed: vital signs, nurses rn notes, radiologic studies, plain films, and as a result, I will discharge patient. Counseling: I had a detailed discussion with the patient and/or guardian regarding the historical points, exam findings, and any diagnostic results supporting the discharge/admit diagnosis, radiology results, the need for outpatient follow up, to return to the emergency department if symptoms worsen or persist or if there are any questions or concerns that arise at home. Response to treatment: the patient's symptoms have mildly improved after treatment, and as a result, I will discharge patient. Special discussion: I discussed with the patient/guardian in detail that at this point there is no indication for admission to the hospital. It is understood, however, that if the symptoms persist or worsen the patient needs to return immediately for re-evaluation. Based on the history and exam findings, there is no indication for further emergent testing or inpatient evaluation. I discussed with the patient/guardian the need to see the orthopedic surgeon for further evaluation of the symptoms. 15:38 ED course: Questionable occult fracture of the left elbow, patient is uncomfortable rn enough to believe that there is a fracture there so decision made to splint for now and will follow-up with orthopedics for repeat imaging. I have personally reviewed all of the results, including but not limited to imaging deemed necessary to safely discharge this patient at this time. All results given to and printed out for patient. I personally went over all the results with the patient and answered all questions. Patient will follow-up with PCP and or specialist as discussed. Return precautions given and understood.. 01/28 13:51 Order name: XRAY Humerus LEFT; Complete Time: 14:59 rn 01/28 13:51 Order name: XRAY Forearm LEFT; Complete Time: 14:59 rn 01/28 13:51 Order name: XRAY Knee LEFT 3 view; Complete Time: 14:59 rn 01/28 14:21 Order name: Elbow Left 2 View; Complete Time: 15:06 EDMS 01/28 13:51 Order name: Sling; Complete Time: 14:07 rn 01/28 15:06 Order name: Splint - Elbow - Posterior; Complete Time: 15:43 rn Administered Medications: 15:21 Drug: Ketorolac IM 15 mg IM once Route: IM; Site: right deltoid; ap3 15:55 Follow up: Response: No adverse reaction; Pain is decreased ap3 15:21 Drug: HYDROcodone-acetaminophen PO 5 mg-325 mg 1 tabs PO once Route: PO; ap3 15:55 Follow up: Response: No adverse reaction; Pain is decreased ap3 Disposition Summary: 01/28/25 15:39 Discharge Ordered Notes: Location: Home rn Problem: new rn Symptoms: have improved rn Condition: Stable rn Diagnosis - Acute, closed, left elbow fracture rn Followup: rn - With: Private Physician - When: As needed - Reason: Recheck today's complaints, Re-evaluation by your physician Discharge Instructions: - Discharge Summary Sheet rn - Cast or Splint Care, Adult rn - Distal Humerus Elbow Fracture Rehab-SportsMed rn Forms: - Medication Reconciliation Form rn - Antibiotic morning nanny - Prescription Opioid Use rn - Patient Portal Instructions rn - Leadership Thank You Letter rn Prescriptions: - Tramadol 50 mg Oral Tablet - take 1 tablet ORAL route every 8 hours as needed; 12 tablet; Refills: 0, rn Product Selection Permitted Signatures: Dispatcher [employer] EDImer De Souza MD MD rn Baxter, Heather, RN RN hb Prokisch, Amanda, RN RN ap3 Corrections: (The following items were deleted from the chart) 14:21 13:51 Elbow Left 3 View+[email or web address] ordered. EDMS EDMS
--- NOTE | 2025-01-28 15:40 | ER ---
Nurse's Notes [facility] Name: Wandy Marks Age: 74 yrs Sex: Female : 1950 Arrival Date: 01/28/2025 Time: 13:05 Bed 11 Private MD: Diagnosis: Acute, closed, left elbow fracture Presentation: 01/28 13:49 Chief complaint: Severe left elbow pain after mechanical fall from standing just [employer]. hb Also c/o right knee pain and abrasion to right knee. Coronavirus screen: At this time, the client does not indicate any symptoms associated with coronavirus-19. Ebola Screen: No symptoms or risks identified at this time. Initial Sepsis Screen: Does the patient meet any 2 criteria? No. Patient's initial sepsis screen is negative. Does the patient have a suspected source of infection? No. Patient's initial sepsis screen is negative. Risk Assessment: Do you want to hurt yourself or someone else? Patient reports no desire to harm self or others. Onset of symptoms was January 28, 2025. 13:49 Method Of Arrival: Ambulatory hb 13:49 Acuity: PENNY 4 hb 14:07 Care prior to arrival: None. Mechanism of Injury: Fall from standing position. Trauma ap3 event details: Injury occurred in the [facility], Injury occurred: at home. Injury occurred: January 28, 2025. Historical: - Allergies: 13:50 PENICILLINS; hb - PMHx: 13:50 High Cholesterol; Diabetes - NIDDM; Hypertension; Pancreatitis; hb - Immunization history:: Adult Immunizations up to date. - Infectious Disease History:: Denies. - Social history:: Smoking status: Patient denies any tobacco usage or history of. - Family history:: not pertinent. - Hospitalizations: : No recent hospitalization is reported. Screenin:06 [facility] ED Fall Risk Assessment (Adult) History of falling in the last 3 months, ap3 including since admission Yes- single mechanical fall (1 pt) Confusion or Disorientation No (0 pts) Intoxicated or Sedated No (0 pts) Impaired Gait No (0 pts) Mobility Assist Device Used No (0 pt) Altered Elimination No (0 pt) Score/Fall Risk Level 0 - 2 = Low Risk Oriented to surroundings, Maintained a safe environment, Educated pt \T\ family on fall prevention, incl call for assistance when getting out of bed, Assessed \T\ reinforced patient's understanding of fall precautions, Hourly rounding (assess needs \T\ fall precautionary measures) done, Used ambulatory aids as needed (educated on \T\ assisted with). Abuse screen: Denies threats or abuse. Nutritional screening: No deficits noted. Tuberculosis screening: No symptoms or risk factors identified. Primary Survey: 14:06 NO uncontrolled hemorrhage observed. A: The client is awake and alert. The airway is ap3 patent. Breathing/Chest: Spontaneous respiratory effort, equal unlabored respirations, breath sounds clear bilaterally, regular pattern, symmetrical chest rise and fall. Circulation: No external hemorrhage present. Regular and strong central pulse, skin warm/dry/normal color. Disability Client is alert. Exposure/Environment: A warming method has been applied: A warm blanket has been provided to the patient. Assessment: 14:05 General: Appears uncomfortable, Behavior is calm, cooperative, appropriate for age. ap3 Pain: Complains of pain in left arm and left knee. Neuro: Level of Consciousness is awake, alert, obeys commands, Oriented to person, place, time, situation, Appropriate for age. Cardiovascular: Patient's skin is warm and dry. Respiratory: Airway is patent Respiratory effort is even, unlabored, Respiratory pattern is regular, symmetrical. Vital Signs: 13:50 BP 148 / 88; Pulse 88; Resp 16; Temp 97; Pulse Ox 100% on R/A; Weight 74.39 kg; Height hb 5 ft. 0 in. ; Pain 10/10; 13:50 Body Mass Index 32.03 (74.39 kg, 152.4 cm) hb 13:50 Pain Scale: Adult hb Joo Coma Score: 14:07 Eye Response: spontaneous(4). Motor Response: obeys commands(6). Verbal Response: ap3 oriented(5). Total: 15. Trauma Score (Adult): 14:06 Eye Response: spontaneous(1); Verbal Response: oriented(1); Motor Response: obeys ap3 commands(2); Systolic BP: > 89 mm Hg(4); Respiratory Rate: 10 to 29 per min(4); Joo Score: 15; Trauma Score: 12 ED Course: 13:08 Patient arrived in ED. al6 13:16 Imer Lowe MD is Attending Physician. rn 13:50 Triage completed. hb 13:51 Arm band placed on. hb 14:05 Kristy Ricardo, RN is Primary Nurse. ap3 14:06 Patient maintains SpO2 saturation greater than 95% on room air. ap3 14:21 XRAY Humerus LEFT In Process Unspecified. EDMS 14:21 XRAY Forearm LEFT In Process Unspecified. EDMS 14:21 XRAY Knee LEFT 3 view In Process Unspecified. EDMS 14:21 Elbow Left 2 View In Process Unspecified. EDMS 15:54 No provider procedures requiring assistance completed. Patient did not have IV access ap3 during this emergency room visit. 15:55 Patient has correct armband on for positive identification. Provided Education on: ap3 discharge instructions. Administered Medications: 15:21 Drug: Ketorolac IM 15 mg IM once Route: IM; Site: right deltoid; ap3 15:55 Follow up: Response: No adverse reaction; Pain is decreased ap3 15:21 Drug: HYDROcodone-acetaminophen PO 5 mg-325 mg 1 tabs PO once Route: PO; ap3 15:55 Follow up: Response: No adverse reaction; Pain is decreased ap3 Medication: 15:55 VIS not applicable for this client. ap3 Outcome: 15:39 Discharge ordered by . rn 15:54 Discharged to home ambulatory, with family, ap3 15:54 Condition: good 15:54 Discharge instructions given to patient, Instructed on discharge instructions, follow up and referral plans. Demonstrated understanding of instructions, follow-up care, medications, Prescriptions given X 1, 15:55 Patient left the ED. ap3 Signatures: Dispatcher [employer] EDNE Imer Lowe MD MD rn Baxter, Heather, RN RN Kristy Ricardo RN RN ap3 Shannon Thompson
[2025-01-28 15:59] VITALS: BP 148/88; TEMP 97; O2SAT 100
== END 2025-01-28 15:55 | disposition home or self-care (01) ==
LOC: ER 13:05
PROC: 2W39X1Z Immobilization of Left Upper Extremity using Splint (ICD-10-PCS; principal; 2025-01-28)
DX: S42.412A Displaced simple supracondylar fracture without intercondylar fracture of left humerus, initial encounter for closed fracture (principal); W18.30XA Fall on same level, unspecified, initial encounter
CPT/HCPCS: 96372; 99284

== ENCOUNTER 2025-01-31 06:59 | Emergency (ER) | payer OTHER ==
--- OUTSIDE RECORDS SUMMARY | 2025-01-31 07:03 | XMS REPORT | Continuity of Care Document ---
Author Name Unknown Address [address] [facility] [address] [place] [address] [facility] Address [address] [facility] [address] [place] [address] Care Team Providers Care Customer Leader Name Role Phone Esperanza Escoto Primary Care Physician [phone] Trish Valverde Cardiology Attending Clinician Unavailable Ema Escoto Attending Clinician Con Rikcetts MD Attending Clinician +- [phone] CON DALY Attending Clinician Dwaine mitchell Doctor Unassigned, [place] Attending Clinician U Ema Galdamez Admitting Clinician CON Ricketts Admitting Clinician Con Reza MD Admitting Clinician +- [phone] Payers Payer Name Policy Type Policy Number Effective Date Expirati on Date Source [place] [address] [id number] [facility] [place] [id number] [facility] [place] [id number] [facility] [place] [id number] [facility] C1 [id number] [place] [id number] [place] [id number] [facility] C1 [id number] [facility] C1 [id number] [facility] C1 [id number] [place] [address] [id number] [facility] C1 [id number] [facility] Problems Condition Name Condition Details Condition Category Status Onset Date Resolution Date Last Treatment Date Treating Clinician Comments Source [id number] Primary osteoarthr itis of right knee Problem [facility] [id number] Primary osteoarthr itis of left knee Problem Active [facility] [id number] Status post total left knee replacemen t Problem Active [facility] Allergies, Adverse Reactions, Alerts Allergy Name Allergy Type Status Severity Reaction(s) Onset Date Inactive Date Treating Clinician Comments Source PENICILL INS Drug Class Active Rash 02-08 00:00: 00 [facility] Penicill ins Propensi ty to adverse reaction s Active Rash 02-08 00:00: 00 [facility] empaglif lozin empaglif lozin Active Unknown [facility] canaglif lozin canaglif lozin Active Unknown [facility] 0 Drug allergy Active Unknown [facility] metformi n metformi n Active Unknown [facility] Social History Social Habit Start Date Stop Date Quantity Comments Source History of Tobacco Use [facility] Sexual orientation U [facility] History of Social function 2023-10-06 00:00:00 2023-10-06 00:00:00 [facility] Alcohol intake 2023-09-28 00:00:00 2023-09-28 00:00:00 0 /d [facility] Sex Ass[birth year] At 1950 00:00:00 1950 00:00:00 [facility] Smoking Status Start Date Stop Date Source Never smoked tobacco [facility] Medications Ordered Medication Name Filled Medication Name Start Date Stop Date Current Medication? Ordering Clinician Indication Dosage Frequency Signature (SIG) Comments Components Source neomycin-po lymyxin-dex amethasone (MAXITROL) 3.5 mg/g-10,000 unit/g-0.1 % ophthalmic ointment 2022-11 14:21: 00 10-06 14:59 :12 No PRN, Starting on Myranda 10/06/23 at 0821, Until Myranda 10/06/23 at 0859, Routine, Intra-op [facility] sodium chloride (NS) injection 2022-11 14:20: 00 10-06 14:59 :12 No PRN, Starting on Myranda 10/06/23 at 0820, Until Myranda 10/06/23 at 0859, Routine, Intra-op [facility] gentamicin injection 2022-11 14:20: 00 10-06 14:59 :12 No PRN, Starting on Myranda 10/06/23 at 0820, Until Myranda 10/06/23 at 0859, JOHANNA, Intra-op [facility] dexamethaso ne (DECADRON PHOSPHATE) injection 2022-11 14:20: 00 10-06 14:59 :12 No PRN, Starting on Myranda 10/06/23 at 0820, Until Myranda 10/06/23 at 0859, Routine, Intra-op [facility] ceFAZolin (ANCEF) injection 2022-11 14:20: 00 10-06 14:59 :12 No PRN, Starting on Myranda 10/06/23 at 0820, Until Myranda 10/06/23 at 0859, JOHANNA, Intra-op [facility] chondroitin sulf-sod hyaluronate (DUOVISC VISCO ELASTIC) intraocular injection 2022-11 14:15: 00 10-06 14:59 :12 No PRN, Starting on Myranda 11/16/23 at 0815, Until Myranda 10/06/23 at 0859, Routine, Intra-op Univers [facility] EPINEPHrine (PF) 1:1,000 (1 mg/mL) (ADRENALIN (PF)) injection 2022-11 14:14: 00 10-06 14:59 :12 No PRN, Starting on Myranda 10/06/23 at 0814, Until Myranda 10/06/23 at 0859, Routine, Intra-op [facility] balanced salt soln no.2 irrig. (BSS) ophthalmic solution 2022-11 14:14: 00 10-06 14:59 :12 No PRN, Starting on Myranda 10/06/23 at 0814, Until Myranda 10/06/23 at 0859, Routine, Intra-op [facility] water for irrigation irrigation solution 2022-11 14:08: 00 10-06 14:59 :12 No PRN, Starting on Myranda 10/06/23 at 0808, Until Myranda 10/06/23 at 0859, Routine, Intra-op [facility] tetracaine (PONTOCAINE ) 0.5 % ophthalmic drops 2022-11 14:05: 00 10-06 14:59 :12 No PRN, Starting on Myranda 10/06/23 at 0805, Until Myranda 10/06/23 at 0859, Routine, Intra-op [facility] eye block syringe 11 mL 2022-11 14:05: 00 10-06 14:59 :12 No PRN, Starting on Myranda 10/06/23 at 0805, Until Myranda 10/06/23 at 0859, Intra-op [facility] cyclopent 1%-tropic 1%-phenyl 2.5%-ketor 0.5% (MYDRIATIC #5) ophthalmic solution syringe 0.5 mL 2022-11 12:45: 00 10-06 12:56 :00 No .5mL 0.5 mL, Right Eye, ONCE, 1 dose, On Myranda 10/06/23 at 0645, Routine, DSU Pre-op [facility] lactated ringers IV infusion 1,000 mL 2022-11 12:45: 00 10-06 12:56 :00 No 1000mL at 42 mL/hr, 1,000 mL, IV Infusion, ONCE, 1 dose, On Myranda 10/06/23 at 0645, Routine, DSU Pre-op [facility] CARVEDILOL ORAL 2022-11 08:59: 51 Yes 12.5mg Take 12.5 mg by mouth every evening. [facility] pioglitazon e (ACTOS) 30 mg tablet 2022-11 08:59: 51 Yes 30mg Take 1 tablet by mouth in the morning. [facility] losartan 100 mg tablet 2022-11 08:59: 51 Yes 100mg Take 1 tablet by mouth in the morning. [facility] SITagliptin phos-metfor min (JANUMET XR) 100-1,000 mg per tablet 2022-11 08:59: 51 Yes 1{tbl} Take 1 tablet by mouth in the morning. [facility] Cholecalcif felipe, Vitamin D3, (VITAMIN D3) 125 mcg (5,000 unit) tablet 2022-11 08:59: 51 Yes 5000U Take 1 tablet by mouth in the morning. [facility] vitamin e 268 mg (400 unit) capsule 2022-11 08:59: 51 Yes 400U Take 1 capsule by mouth in the morning. [facility] magnesium citrate 100 mg Tab 2022-11 08:59: 51 Yes 250mg Take 250 mg by mouth every evening. [facility] neomycin-po lymyxin-dex amethasone (MAXITROL) 3.5 mg/g-10,000 unit/g-0.1 % ophthalmic ointment 2022-11 14:23: 00 09-15 14:33 :01 No PRN, Starting on Myranda 09/15/23 at 0923, Until Myranda 09/15/23 at 0933, Routine, Intra-op [facility] gentamicin injection 2022-11 14:23: 00 09-15 14:33 :01 No PRN, Starting on Myranda 09/15/23 at 0923, Until Myranda 09/15/23 at 09, JOHANNA, Intra-op [facility] dexamethaso ne (DECADRON PHOSPHATE) injection 2022-11 14:23: 00 09-15 14:33 :01 No PRN, Starting on Myranda 09/15/23 at 0923, Until Myranda 09/15/23 at 09, Routine, Intra-op [facility] chondroitin sulf-sod hyaluronate (DUOVISC VISCO ELASTIC) intraocular injection 2022-11 14:17: 00 09-15 14:33 :01 No PRN, Starting on Myranda 09/15/23 at 0917, Until Myranda 09/15/23 at 09, Routine, Intra-op [facility] EPINEPHrine (PF) 1:1,000 (1 mg/mL) (ADRENALIN (PF)) injection 2022-11 14:16: 00 09-15 14:33 :01 No PRN, Starting on Myranda 09/15/23 at 0916, Until Myranda 09/15/23 at 09, Routine, Intra-op [facility] balanced salt soln no.2 irrig. (BSS) ophthalmic solution 2022-11 14:16: 00 09-15 14:33 :01 No PRN, Starting on Myranda 09/15/23 at 0916, Until Myranda 09/15/23 at 09, Routine, Intra-op [facility] water for irrigation irrigation solution 2022-11 14:11: 00 09-15 14:33 :01 No PRN, Starting on Myranda 09/15/23 at 0911, Until Myranda 09/15/23 at 09, Routine, Intra-op [facility] tetracaine (PONTOCAINE ) 0.5 % ophthalmic drops 2022-11 14:08: 00 09-15 14:33 :01 No PRN, Starting on Myranda 09/15/23 at 0908, Until Myranda 09/15/23 at 0933, Routine, Intra-op [facility] eye block syringe 11 mL 2022-11 14:07: 00 09-15 14:33 :01 No PRN, Starting on Myranda 09/15/23 at 0907, Until Myranda 09/15/23 at 0933, Intra-op [facility] cyclopent 1%-tropic 1%-phenyl 2.5%-ketor 0.5% (MYDRIATIC #5) ophthalmic solution syringe 0.5 mL 2022-11 13:00: 00 09-15 13:20 :00 No .5mL 0.5 mL, Left Eye, ONCE, 1 dose, On Myranda 09/15/23 at 0800, Routine, DSU Pre-op [facility] lactated ringers IV infusion 1,000 mL 2022-11 13:00: 00 09-15 13:20 :00 No 1000mL at 42 mL/hr, 1,000 mL, IV Infusion, ONCE, 1 dose, On Tue09/15/23 at 0800, Routine, DSU Pre-op [facility] CARVEDILOL ORAL 2022-11 10:20: 28 Yes 12.5mg Take 12.5 mg by mouth every evening. [facility] pioglitazon e (ACTOS) 30 mg tablet 2022-11 10:20: 28 Yes 30mg Take 1 tablet by mouth in the morning. [facility] losartan 100 mg tablet 2022-11 10:20: 28 Yes 100mg Take 1 tablet by mouth in the morning. [facility] SITagliptin phos-metfor min (JANUMET XR) 100-1,000 mg per tablet 2022-11 10:20: 28 Yes 1{tbl} Take 1 tablet by mouth in the morning. [facility] Cholecalcif felipe, Vitamin D3, (VITAMIN D3) 125 mcg (5,000 unit) tablet 2022-11 10:20: 28 Yes 5000U Take 1 tablet by mouth in the morning. [facility] vitamin e 268 mg (400 unit) capsule 2022-11 10:20: 28 Yes 400U Take 1 capsule by mouth in the morning. [facility] magnesium citrate 100 mg Tab 2022-11 10:20: 28 Yes 250mg Take 250 mg by mouth in the morning. [facility] Ibuprofen Ibuprofen 05-26 00:00: 00 Yes Josue Nova 1 tablet [facility] Tramadol HCl Tramadol HCl 05-26 00:00: 00 Yes Josue Nova 1 tablet as needed [facility] Ibuprofen 600 MG Ibuprofen 600 MG 05-26 00:00: 00 No 1{table t} QD Ibuprofen 600 MG Ibuprofen 600 MG Ibuprofen 600 MG 05-26 00:00: 00 No 1{table t} QD Ibuprofen 600 MG Ibuprofen 600 MG Ibuprofen 600 MG 05-26 00:00: 00 No 1{table t} QD Ibuprofen 600 MG pioglitazon e (ACTOS) 30 mg tablet 02-09 12:54: 45 Yes 30mg Take 30 mg by mouth daily. [facility] CARVEDILOL ORAL 02-08 13:54: 19 Yes 12.5mg Take 12.5 mg by mouth. [facility] Nystatin Nystatin Yes Josue Nova not defined [facility] Losartan Potassium Losartan Potassium Yes Josue Nova not defined [facility] Symbicort Symbicort Yes Josue Nova not defined [facility] Lansoprazol e Lansoprazol e Yes Josue Nova not defined [facility] Ondansetron HCl Ondansetron HCl Yes Josue Nova not defined [facility] Carvedilol Carvedilol Yes Josue Nova not defined [facility] Clarithromy shayy Clarithromy shayy Yes Josue Nova not defined [facility] Neomycin-Po lymyxin-HC Neomycin-Po lymyxin-HC Yes Josue Nova not defined [facility] Sulfamethox azole-Trime thoprim Sulfamethox azole-Trime thoprim Yes Josue Nova not defined [facility] Esomeprazol e Magnesium Esomeprazol e Magnesium Yes Josue Nova not defined [facility] Acetaminoph en-Codeine #3 Acetaminoph en-Codeine #3 Yes Josue Nova not defined [facility] Pantoprazol e Sodium Pantoprazol e Sodium Yes Josue Nova not defined [facility] Jentadueto Jentadueto Yes Josue Nova not defined [facility] Famotidine Famotidine Yes Josue Nova not defined [facility] Metronidazo le Metronidazo le Yes Josue Nova not defined [facility] Triamcinolo ne Acetonide Triamcinolo ne Acetonide Yes Josue Nova not defined [facility] Duexis Duexis Yes Josue Nova not defined [facility] Ciprofloxac in HCl Ciprofloxac in HCl Yes Josue Nova not defined [facility] Hydrocodone -Acetaminop hen Hydrocodone -Acetaminop hen Yes Josue Nova not defined [facility] tramadol tramadol Yes Josue Nova not defined [facility] Dicyclomine HCl Dicyclomine HCl Yes Josue Nova not defined [facility] Esomeprazol e Magnesium Esomeprazol e Magnesium No Esomeprazo le Magnesium Citalopram Hydrobromid e Citalopram Hydrobromid e No Citalopram Hydrobromi de Cetirizine HCl 10 MG Cetirizine HCl 10 MG No 1{table t} QD Cetirizine HCl 10 MG Gabapentin 100 MG Gabapentin 100 MG No 1{capsu le} QD Gabapentin 100 MG Nystatin Nystatin No Nystatin Immunizations Ordered Immunization Name Filled Immunization Name Date Status Comments Source SARS-COV-2 COVID-19 PFIZER VACCINE Unknown Completed [facility] SARS-COV-2 COVID-19 PFIZER VACCINE Unknown Completed [facility] SARS-COV-2 COVID-19 PFIZER VACCINE Unknown Completed [facility] SARS-COV-2 COVID-19 PFIZER VACCINE Unknown Completed [facility] SARS-COV-2 COVID-19 PFIZER VACCINE Unknown Completed [facility] SARS-COV-2 COVID-19 PFIZER VACCINE Unknown Completed [facility] SARS-COV-2 COVID-19 PFIZER VACCINE Unknown Completed [facility] Vital Signs Vital Name Observation Time Observation Value Comments S ource Systolic blood pressure 2023-10-06 14:35:00 140 mm[Hg] [facility] Diastolic blood pressure 2023-10-06 14:35:00 65 mm[Hg] [facility] Heart rate 2023-10-06 14:35:00 63 /min [facility] Respiratory rate 2023-10-06 14:35:00 13 /min [facility] Oxygen saturation in Arterial blood by Pulse oximetry 2023-10-06 14:35:00 99 /min [facility] Body temperature 2023-10-06 14:23:00 36.61 Sh[facility] Body height 2023-09-28 23:00:00 152.4 cm [facility] Body weight 2023-09-28 23:00:00 71.215 kg [facility] BMI 2023-09-28 23:00:00 30.66 kg/m2 [facility] Systolic blood pressure 2023-10-06 14:35:00 140 mm[Hg] [facility] Diastolic blood pressure 2023-10-06 14:35:00 65 mm[Hg] [facility] Heart rate 2023-10-06 14:35:00 63 /min [facility] Respiratory rate 2023-10-06 14:35:00 13 /min [facility] Oxygen saturation in Arterial blood by Pulse oximetry 2023-10-06 14:35:00 99 /min [facility] Body temperature 2023-10-06 14:23:00 36.61 Sh[facility] Body height 2023-09-28 23:00:00 152.4 cm [facility] Body weight 2023-09-28 23:00:00 71.215 kg [facility] BMI 2023-09-28 23:00:00 30.66 kg/m2 [facility] Systolic blood pressure 2023-09-15 14:51:00 136 mm[Hg] [facility] Diastolic blood pressure 2023-09-15 14:51:00 65 mm[Hg] [facility] Heart rate 2023-09-15 14:51:00 65 /min [facility] Respiratory rate 2023-09-15 14:51:00 13 /min [facility] Oxygen saturation in Arterial blood by Pulse oximetry 2023-09-15 14:51:00 96 /min [facility] Body temperature 2023-09-15 14:31:00 36.44 [facility] Body height 2023-09-06 19:00:00 152.4 cm [facility] Body weight 2023-09-06 19:00:00 77.565 kg [facility] BMI 2023-09-06 19:00:00 33.40 kg/m2 [facility] Heart rate 2023-09-15 14:47:00 58 /min [facility] Respiratory rate 2023-09-15 14:47:00 15 /min [facility] Oxygen saturation in Arterial blood by Pulse oximetry 2023-09-15 14:47:00 98 /min [facility] Systolic blood pressure 2023-09-15 14:45:00 127 mm[Hg] [facility] Diastolic blood pressure 2023-09-15 14:45:00 55 mm[Hg] [facility] Body temperature 2023-09-15 14:31:00 36.44 [facility] Body height 2023-09-06 19:00:00 152.4 cm [facility] Body weight 2023-09-06 19:00:00 77.565 kg [facility] BMI 2023-09-06 19:00:00 33.40 kg/m2 [facility] height 2023-08-04 14:00:00 58 [in_i] [facility] weight 2023-08-04 14:00:00 163 [lb_av] [facility] temperature 2023-08-04 14:00:00 97.8 [degF] Com mon [facility] bmi 2023-08-04 14:00:00 34.06 kg/m2 [facility] blood pressure systolic 2023-08-04 14:00:00 132 mm[Hg] [facility] blood pressure diastolic 2023-08-04 14:00:00 78 mm[Hg] [facility] height 2021-06-15 09:00:00 58 [in_i] Commo n [facility] weight 2021-06-15 09:00:00 160 [lb_av] [facility] on [facility] temperature 2021-06-15 09:00:00 97.3 [degF] Com [facility] bmi 2021-06-15 09:00:00 33.44 kg/m2 [facility] blood pressure systolic 2021-06-15 09:00:00 142 mm[Hg] [facility] blood pressure diastolic 2021-06-15 09:00:00 86 mm[Hg] [facility] height 2020-12-15 13:30:00 58 [in_i] Commo n [facility] weight 2020-12-15 13:30:00 160 [lb_av] [facility] on [facility] temperature 2020-12-15 13:30:00 97.5 [degF] Com [facility] bmi 2020-12-15 13:30:00 33.44 kg/m2 [facility] blood pressure systolic 2020-12-15 13:30:00 152 mm[Hg] [facility] blood pressure diastolic 2020-12-15 13:30:00 84 mm[Hg] [facility] height 2020 09:00:00 58 [in_i] Commo n [facility] weight 2020 09:00:00 160 [lb_av] Comm on [facility] bmi 2020 09:00:00 33.44 kg/m2 [facility] blood pressure systolic 2020 09:00:00 152 mm[Hg] Common [facility] blood pressure diastolic 2020 09:00:00 88 mm[Hg] [facility] Procedures Procedure Date / Time Performed Performing Clinician Source PHACOEMULSIFICATION OF CATARACT WITH INTRAOCULAR LENS IMPLANT 2023-10-06 13:54:00 [facility] POCT GLUCOSE (AUTOMATED) 2023-10-06 12:47:00 [facility] POCT GLUCOSE (AUTOMATED) 2023-10-06 12:47:00 Con Daly [facility] DAY SURGERY - ADC 2023-10-06 06:01:00 Doctor Unassigned, [place] [facility] PHACOEMULSIFICATION OF CATARACT WITH INTRAOCULAR LENS IMPLANT 2023-09-15 13:57:00 [facility] POCT GLUCOSE (AUTOMATED) 2023-09-15 13:16:00 [facility] POCT GLUCOSE (AUTOMATED) 2023-09-15 13:16:00 Con Daly [facility] PATIENT QUESTIONNAIRE 2023-09-15 05:01:00 Doctor Unassigned, [place] [facility] ASSIGNMENT OF BENEFITS 2023-09-01 20:25:07 Doctor Unassigned, [place] [facility] Encounters Start Date/Time End Date/Time Encounter Type Admission Type Attending [facility] Care Facility Care Department Encounter ID Source 2025-01-30 08:30:00 Inpatient Trish Verma [facility] [id number] [facility] 2025-01-29 08:41:[address] [facility] [id number] [facility] 2023-09-14 08:43:[address] [facility] [id number] [facility] 2023-06-28 16:02:00 Outpatient [facility] [id number] [facility] 2021-12-16 13:39:45 Outpatient [facility] [id number] [facility] 2021-12-16 13:30:48 Outpatient [facility] [id number] [facility] 2021-12-16 13:30:08 Outpatient Ema Escoto [facility] [id number] [facility] 2021-12-16 12:29:52 Outpatient Ema Escoto [facility] [id number] [facility] 2021-12-16 11:25:25 Outpatient Ema Escoto [facility] [id number] [facility] 2021-12-16 11:02:53 Outpatient Ema Escoto [facility] [id number] [facility] 2025-01-04 17:51:32 2025-01-04 17:51:32 Outpatient SFA SFA [id number] [facility] 2024-12-25 15:57:32 2024-12-25 15:57:32 Outpatient SFA SFA [id number] [facility] Rig[facility] 2024-12-18 11:04:19 2024-12-18 11:04:19 Outpatient SFA SFA [id number] [facility] Riggs 2024-11-16 09:00:21 2024-11-16 09:00:21 Outpatient SFA SFA [id number] [facility] Riggs 2024-10-15 13:55:23 2024-10-15 13:55:23 Outpatient SFA SFA [id number] Eve[facility] Riggs 2024-10-02 07:44:36 2024-10-02 07:44:36 Outpatient SFA SFA [id number] Everett Riggs 2024-08-28 07:32:48 2024-08-28 07:32:48 Outpatient SFA SFA [id number] Eve[facility] Riggs 2024-08-13 07:26:50 2024-08-13 07:26:50 Outpatient SFA SFA [id number] Everett Riggs 2024-07-13 09:17:32 2024-07-13 09:17:32 Outpatient SFA SFA [id number] Everett Riggs 2024-06-01 08:06:48 2024-06-01 08:06:48 Outpatient SFA SFA [id number] Everett Riggs 2024-05-23 17:01:01 2024-05-23 17:01:01 Outpatient SFA SFA [id number] Everett Riggs 2024-05-07 07:49:54 2024-05-07 07:49:54 Outpatient SFA SFA [id number] Everett Riggs 2024-05-04 07:51:15 2024-05-04 07:51:15 Outpatient SFA SFA [id number] Everett Riggs 2024-04-20 14:45:24 2024-04-20 14:45:24 Outpatient SFA SFA [id number] Everett Riggs 2024-04-09 07:38:26 2024-04-09 07:38:26 Outpatient SFA SFA [id number] Everett Riggs 2024-02-29 07:22:14 2024-02-29 07:22:14 Outpatient SFA SFA [id number] Everett Riggs 2024-02-28 14:45:31 2024-02-28 14:45:31 Outpatient SFA SFA [id number] Everett Riggs 2023-12-06 13:55:35 2023-12-06 13:55:35 Outpatient SFA SFA [id number] Everett Riggs 2023-10-06 08:00:00 2023-10-06 08:37:00 Surgery Con Daly [facility] [id number] [facility] 2023-10-06 06:33:00 2023-10-06 08:35:00 Outpatient R CON DALY [facility] OPH [id number] [facility] 2023-10-06 06:33:00 2023-10-06 08:35:00 Hospital Encounter Con Daly [facility] [id number] [facility] 2023-10-06 00:00:00 2023-10-06 00:00:00 Orders Only Doctor Unassigned, [place] [facility] [id number] [facility] 2023-09-27 11:16:53 2023-09-27 11:16:53 Outpatient [facility] [id number] Everett Riggs 2023-09-15 07:53:00 2023-09-15 10:00:00 Hospital Encounter Con Daly [facility] [id number] [facility] 2023-09-15 07:53:00 2023-09-15 10:00:00 Outpatient CON TYSON [facility] OPH [id number] [facility] 2023-09-15 09:10:00 2023-09-15 09:47:00 Surgery Con [place]aly [facility] [id number] [facility] 2023-09-15 00:00:00 2023-09-15 00:00:00 Orders Only Doctor Unassigned, [place] [facility] [id number] [facility] 2023-09-01 00:00:00 2023-09-01 00:00:00 Orders Only Doctor Unassigned, [place] [facility] [id number] [facility] 2023-08-15 08:43:04 2023-08-15 08:43:04 Outpatient SFA SFA [id number] Everett Riggs 2023-08-09 08:39:04 2023-08-09 08:39:04 Outpatient SFA SFA [id number] Everett Riggs 2023-08-04 00:00:00 2023-08-04 00:00:00 OFFICE VISIT ESTAB PT LEVEL 4 STLMLC STLMLC [id number] [facility] 2023-07-01 13:33:11 2023-07-01 13:33:11 Outpatient SFA SFA [id number] Everett Riggs 2023-05-16 07:36:35 2023-05-16 07:36:35 Outpatient SFA SFA [id number] Everett Riggs 2023-05-13 14:07:52 2023-05-13 14:07:52 Outpatient SFA SFA [id number] Everett Riggs 2023-03-04 08:24:10 2023-03-04 08:24:10 Outpatient SFA SFA [id number] Everett Riggs 2023-03-01 08:00:08 2023-03-01 08:00:08 Outpatient SFA SFA [id number] Everett Riggs 2021-06-15 00:00:00 2021-06-15 00:00:00 OFFICE VISIT ESTAB PT LEVEL 4 STLMLC STLMLC [id number] [facility] 2020-12-15 00:00:00 2020-12-15 00:00:00 OFFICE VISIT EST PT LEVEL 3 STLMLC STLMLC [id number] [facility] 2020-12-10 00:00:00 2020-12-10 00:00:00 (TEL) STLMLC STLMLC [id number] [facility] 2020-09-08 00:00:00 2020-09-08 00:00:00 [facility]EL[facility] [id number] [facility] 2020 00:00:00 2020 00:00:00 (TEL) [facility] [id number] [facility] 2020 00:00:00 2020 00:00:00 OFFICE VISIT EST PT LEVEL 3 [facility] [id number] [facility] 2020-07-07 08:00:00 2020-07-07 08:00:00 [facility]patient [facility] [id number] [facility] 2020-07-03 16:27:00 2020-07-03 16:27:00 [facility] [id number] [facility] 2020-06-26 10:30:00 2020-06-26 10:30:00 [facility] [id number] [facility] 2020-06-25 13:22:00 2020-06-25 13:22:00 [facility] [id number] [facility] 2020-06-24 12:53:00 2020-06-24 12:53:00 [facility] [id number] [facility] 2020-05-28 15:26:00 2020-05-28 15:26:00 Outpatient [facility] [id number] [facility] 2020-05-26 09:00:00 2020-05-26 09:00:00 [facility]patient [facility] [id number] [facility] 2020-05-12 09:27:00 2020-05-12 09:27:00 [facility]patient [facility] [id number] [facility] 2020-05-09 08:30:00 2020-05-09 08:30:00 Outpatient [facility] [id number] [facility] 2020-05-05 13:36:00 2020-05-05 13:36:00 Outpatient [facility] [id number] [facility] 2020-04-17 15:30:00 2020-04-17 15:30:00 [facility]patient [facility] [id number] [facility] 2020-03-11 09:06:00 2020-03-11 09:06:00 [facility]patient [facility] [id number] [facility] 2020-02-18 15:20:00 2020-02-18 15:20:00 [facility] [id number] [facility] 2019-12-19 10:34:00 2019-12-19 10:34:00 [facility] [id number] [facility] 2019-12-19 10:18:00 2019-12-19 10:18:00 [facility] [id number] [facility] 2019-12-10 08:00:00 2019-12-10 08:00:00 [facility] [id number] [facility] Results Test Description Test Time Test Comments Results Result [facility] 12:49:16* Test Item Value Reference Range Interpretation Comme nts POCT GLU (test code = [id number]) 116 mg/dL 70-110 H Lab Interpretation (test cod e = [id number]) Abnormal [facility] GLUCOSE (AUTOMATED)2023-09-15 13:18:28* Test Item Value Reference Range Interpretation Comme nts POCT GLU (test code = [id number]) 114 mg/dL 70-110 H Lab Interpretation (test cod e = [id number]) Abnormal [facility] GLUCOSE (AUTOMATED)2023-09-15 13:18:28* Test Item Value Reference Range Interpretation Comme nts POCT GLU (test code = [id number]) 114 mg/dL 70-110 H Lab Interpretation (test cod e = [id number]) Abnormal [facility]
[2025-01-31] MEDS ORDERED: IBUPROFEN 200 MG TAB PO ONE (07:24)
[2025-01-31] MEDS ORDERED: HYDROCODONE/APAP 5/325 MG TAB ONE (07:25)
[2025-01-31] MEDS ORDERED: IBUPROFEN 400 MG TAB ONE (07:25)
--- NOTE | 2025-01-31 08:39 | RAD REPORT ---
EXAMINATION: XR Elbow Left 2 View CLINICAL INDICATION: Female, 74 years old. seen recently for occult fracture TECHNIQUE: 3 view radiographs of the left elbow were obtained. COMPARISON: 01/28/2025. FINDINGS: No evidence of fracture or dislocation. Normal alignment. Elevation of the anterior fat pad is seen. Posterior fiberglass splint present, which limits evaluation.. No evidence of arthropathy. No suspicious focal bone lesion. Soft tissues are unremarkable. IMPRESSION: Stable effusion with elevation of the anterior fat pad which may indicate an occult fracture. No disc rete fracture identified.
--- NOTE | 2025-01-31 09:29 | RAD REPORT ---
EXAMINATION: UPPER EXTREMITY VENOUS UNILATE CLINICAL INDICATION: Female, 74 years old. [facility] MAIN PAIN Bed Name: 13 TECHNIQUE: Complete venous duplex sonography of the left upper extremity was performed. The examinati on included compression for vein patency, color Doppler imaging and flow augmentation in response to distal compression of the internal jugular, brachiocephalic, subclavian, axillary, brachial, radia l, ulnar, cephalic and basilic veins. COMPARISON: No prior exam. FINDINGS: Duplex sonography testing of the veins of the right left upper extremity is completed. Color flow melinda ging shows all veins to be compressible with appropriate color filling. Pulsatile and phasic flow is present within the upper extremity deep and superficial veins examined. IMPRESSION: There is no deep vein or superficial vein thrombosis.
--- NOTE | 2025-01-31 09:37 | ER ---
Nurse's Notes [facility] Name: Wandy Marks Age: 74 yrs Sex: Female : 1950 Arrival Date: 01/31/2025 Time: 06:59 Bed 13 Private MD: Diagnosis: Pain in left arm Presentation: 01/31 07:11 Chief complaint: Patient states: Concerned about L arm pain and swelling. Coronavirus ll1 screen: Client denies travel out of the [place] in the last 14 days. At this time, the client does not indicate any symptoms associated with coronavirus-19. Ebola Screen: Patient denies travel to an Ebola-affected area in the 21 days before illness onset. Initial Sepsis Screen: Does the patient meet any 2 criteria? No. Patient's initial sepsis screen is negative. Does the patient have a suspected source of infection? No. Patient's initial sepsis screen is negative. Risk Assessment: Do you want to hurt yourself or someone else? Patient reports no desire to harm self or others. Onset of symptoms was January 31, 2025. 07:11 Method Of Arrival: Ambulatory ll1 07:11 Acuity: PENNY 4 ll1 Triage Assessment: 07:11 General: Appears uncomfortable, Behavior is calm, cooperative, appropriate for age. ll1 Pain: Complains of pain in left arm Quality of pain is described as aching. Musculoskeletal: Reports pain in left arm. Historical: - Allergies: 07:10 PENICILLINS; ll1 - PMHx: 07:10 Diabetes - NIDDM; High Cholesterol; Hypertension; Pancreatitis; ll1 - Immunization history:: Adult Immunizations up to date. - Infectious Disease History:: Denies. - Social history:: Smoking status: Patient denies any tobacco usage or history of. - Family history:: not pertinent. - Hospitalizations: : No recent hospitalization is reported. Screenin:30 [facility] ED Fall Risk Assessment (Adult) History of falling in the last 3 months, ll1 including since admission Yes- single mechanical fall (1 pt) Confusion or Disorientation No (0 pts) Intoxicated or Sedated No (0 pts) Impaired Gait No (0 pts) Mobility Assist Device Used No (0 pt) Altered Elimination Yes (1 pt) Score/Fall Risk Level 3 or more points = High Risk Maintained a safe environment, Hourly rounding (assess needs \T\ fall precautionary measures) done. Abuse screen: Denies threats or abuse. Nutritional screening: No deficits noted. Tuberculosis screening: No symptoms or risk factors identified. Assessment: 07:30 Reassessment: No changes from previously documented assessment. Patient and/or family ll1 updated on plan of care and expected duration. Pain level reassessed. 08:30 Reassessment: No changes from previously documented assessment. Patient and/or family ll1 updated on plan of care and expected duration. Pain level reassessed. 09:46 Reassessment: No changes from previously documented assessment. Patient and/or family ll1 updated on plan of care and expected duration. Pain level reassessed. Patient is alert, oriented x 3, equal unlabored respirations, skin warm/dry/pink. 09:47 Musculoskeletal: Circulation, motion, and sensation intact. Capillary refill < 3 ll1 seconds, in left fingers. Vital Signs: 07:11 BP 117 / 90; Pulse 74; Resp 16; Temp 98.1; Pulse Ox 96% on R/A; Weight 74.39 kg; Height ll1 5 ft. 0 in. ; Pain 10/10; 09:46 BP 141 / 64; Pulse 67; Resp 16; Pulse Ox 95% ; Pain 7/10; ll1 07:11 Body Mass Index 32.03 (74.39 kg, 152.4 cm) ll1 07:11 Pain Scale: Adult ll1 09:46 Pain Scale: Adult ll1 ED Course: 07:02 Patient arrived in ED. [id number] 07:03 Imer Lowe MD is Attending Physician. rn 07:10 Arm band placed on Patient placed in an exam room, on a stretcher. ll1 07:12 Triage completed. ll1 07:20 Marti Mireles, MODE is Primary Nurse. ll1 07:30 Patient has correct armband on for positive identification. Bed in low position. Call ll1 light in reach. Provided Education on: ER procedures and process. Client placed on continuous cardiac and pulse oximetry monitoring. NIBP monitoring applied. 07:50 Elbow Left 2 View In Process Unspecified. EDMS 08:51 UPPER EXTREMITY VENOUS UNILATE In Process Unspecified. EDMS 09:47 No provider procedures requiring assistance completed. Patient did not have IV access ll1 during this emergency room visit. Administered Medications: 07:29 Drug: HYDROcodone-acetaminophen PO 5 mg-325 mg 1 tabs PO once {Note: pain 10/10 RASS ll1 0.} Route: PO; 09:47 Follow up: Response: No adverse reaction; Pain is decreased; RASS: Alert and Calm (0) [facility] 07:29 Drug: Ibuprofen PO 600 mg PO once Route: PO; [facility] 09:47 Follow up: Response: No adverse reaction; Pain is decreased ll1 Medication: 07:30 VIS not applicable for this client. 1 Outcome: 09:36 Discharge ordered by MD. saleh 09:47 Discharged to home ambulatory, [facility] 09:47 Condition: stable 09:47 Discharge instructions given to patient, family, Instructed on discharge instructions, follow up and referral plans. Demonstrated understanding of instructions, follow-up care, splint care, 09:48 Patient left the ED. [facility] Signatures: Dispatcher [employer] EDMS Imer Lowe MD MD rn Lewis, Lynsay, RN RN 1 Carissa Candelarioj6 Corrections: (The following items were deleted from the chart) 07:20 07:11 BP 117 / 90; Pulse 74bpm; Resp 16bpm; Pulse Ox 96% RA; 74.39 kg; Height 5 ft. 0 ll1 in.; BMI: 32.0; Pain 10/10, Adult; ll1
--- NOTE | 2025-01-31 09:37 | EDPHYS ---
Physician Documentation [facility] Name: Wandy Marks Age: 74 yrs Sex: Female : 1950 Arrival Date: 01/31/2025 Time: 06:59 Bed 13 Private MD: ED Physician Imer Lowe HPI: 01/31 07:35 This 74 yrs old Female presents to ER via Ambulatory with complaints of Arm rn Pain. 07:35 The patient or guardian complains of pain. The complaints affect the left elbow and rn palmar aspect of left forearm. Onset: The symptoms/episode began/occurred yesterday. Modifying factors: The symptoms are alleviated by nothing. the symptoms are aggravated by movement. Severity of symptoms: At their worst the symptoms were moderate, in the emergency department the symptoms are unchanged. The patient has not experienced similar symptoms in the past. The patient has been recently seen at the [facility] Emergency Department. Patient reports left arm pain from the elbow to mid forearm. Patient seen here a few days ago and diagnosed with possible elbow fracture from fall. Patient has been in posterior splint since then. Patient denies any new injury. No discoloration. Family not sure if she has been elevating arm properly. No history of DVT. Historical: - Allergies: 07:10 PENICILLINS; ll1 - PMHx: 07:10 Diabetes - NIDDM; High Cholesterol; Hypertension; Pancreatitis; ll1 - Immunization history:: Adult Immunizations up to date. - Infectious Disease History:: Denies. - Social history:: Smoking status: Patient denies any tobacco usage or history of. - Family history:: not pertinent. - Hospitalizations: : No recent hospitalization is reported. ROS: 07:35 Constitutional: Negative for fever, chills, and weight loss, MS/Extremity: Positive for rn increased pain to left arm Skin: Negative for injury, rash, and discoloration, Neuro: Negative for weakness/numbness/tingling Exam: 07:35 Constitutional: This is a well developed, well nourished patient who is awake, alert, rn appears uncomfortable MS/ Extremity: Strong radial pulse. No cyanosis or discoloration. Mild to moderate swelling distal to splint. Vital Signs: 07:11 BP 117 / 90; Pulse 74; Resp 16; Temp 98.1; Pulse Ox 96% on R/A; Weight 74.39 kg; Height ll1 5 ft. 0 in. ; Pain 10/10; 09:46 BP 141 / 64; Pulse 67; Resp 16; Pulse Ox 95% ; Pain 7/10; ll1 07:11 Body Mass Index 32.03 (74.39 kg, 152.4 cm) ll1 07:11 Pain Scale: Adult ll1 09:46 Pain Scale: Adult ll1 MDM: 07:03 Medical Screening Exam initiated rn 07:58 Independent interpretation of the following test(s) in the Emergency Department X-Ray: rn My interpretation is X-ray left elbow now shows nondisplaced radial head fracture per my interpretation. Splint wrapping appears a little too tight shown by indentation of soft tissue on x-ray.. ED course: Splint removed and will rewrap after ultrasound, will rewrap looser. 09:33 Differential diagnosis: Occult fracture, radial head fracture, DVT, splint is too rn tight. Data reviewed: vital signs, nurses notes, radiologic studies, and as a result, I will discharge patient. Counseling: I had a detailed discussion with the patient and/or guardian regarding the historical points, exam findings, and any diagnostic results supporting the discharge/admit diagnosis, radiology results, the need for outpatient follow up, to return to the emergency department if symptoms worsen or persist or if there are any questions or concerns that arise at home. Response to treatment: the patient's symptoms have markedly improved after treatment, and as a result, I will discharge patient. 09:43 ED course: Eagle wrap was loosened by myself, much more comfortable and patient states rn once Eagle wrap was loosened pain has improved markedly. 01/31 07:50 Order name: Elbow Left 2 View; Complete Time: 09:33 EDMS 01/31 08:15 Order name: UPPER EXTREMITY VENOUS UNILATE; Complete Time: 09:33 EDMS Administered Medications: 07:29 Drug: HYDROcodone-acetaminophen PO 5 mg-325 mg 1 tabs PO once {Note: pain 10/10 RASS ll1 0.} Route: PO; 09:47 Follow up: Response: No adverse reaction; Pain is decreased; RASS: Alert and Calm (0) ll1 07:29 Drug: Ibuprofen PO 600 mg PO once Route: PO; ll1 09:47 Follow up: Response: No adverse reaction; Pain is decreased ll1 Disposition Summary: 01/31/25 09:36 Discharge Ordered Notes: Location: Home rn Problem: new rn Symptoms: have improved rn Condition: Stable rn Diagnosis - Pain in left arm rn Followup: rn - With: Private Physician - When: As needed - Reason: Recheck today's complaints, Re-evaluation by your physician Discharge Instructions: - Discharge Summary Sheet rn - Cast or Splint Care, Adult rn Forms: - Medication Reconciliation Form rn - Antibiotic government sales manager - Prescription Opioid Use rn - Patient Portal Instructions rn - Leadership Thank You Letter rn Signatures: Dispatcher [employer] EDMS Imer Lowe MD MD rn Lewis, Lynsay, RN RN ll1 Corrections: (The following items were deleted from the chart) 07:50 07:14 Elbow Left 3 View+RAD.RAD.BRZ ordered. EDMS EDMS 08:15 07:14 Extremity Venous Uni Ltd+US.RAD.BRZ ordered. EDMS EDMS
[2025-01-31 09:52] VITALS: TEMP 98.1
[2025-01-31 09:53] VITALS: BP 141/64; O2SAT 95
== END 2025-01-31 09:48 | disposition home or self-care (01) ==
LOC: ER 06:59
DX: M79.602 Pain in left arm (principal)
CPT/HCPCS: 93971; 99284